=== PATIENT | female | born 1940 | race Caucasian/White ===

== ENCOUNTER 2016-09-07 03:45 | Emergency (ER) | payer OTHER ==
--- NOTE | 2016-09-07 05:22 | ED NURSING NOTES ---
Clinical Report - Nurses [place] [address] [place] [address] 09/07/2016 3:45 Patient: GEMINI LENZ TRIAGE Triage time 0350 AM. Acuity: LEVEL 4. Chief Complaint: INJURY TO LEFT FOOT. INJURY TO THE LEFT GREAT TOE. Alert. No acute distress. NHI COMA SCORE: [place] Coma Scale: 15- eyes open spontaneously (4); best verbal response- oriented x 4 (5); best motor response- obeys commands (6). --03:53 Bishop Alcantara R.N. 03:58 09/07/16. BP: 162/69. HR: 84. RR: 16. O2 saturation: 98%. Temp: 98 F. Pain level now: 05/02. --04:03 Bishop Alcantara R.N. Weight: 96.1 kg stated. Height/Length: 65 inches Per Patient. BMI: 35.3. --03:51 Bishop Alcantara R.N. Medications Acyclovir Oral 800 mg, as needed. Fluticasone Propionate Nasal, as needed. Lasix 60mg twice a day. Lovastatin Oral. --03:51 Bishop Alcantara R.N. MetFORMIN HCl Oral 1000mg, 2x a day. Nitroglycerin Translingual, as needed. Ropinirole Hydrochloride Oral 2 mg , as needed. Sinemet Oral (Tablet 25-250 mg), up yo 5 times a day as needed. Venlafaxine HCl Oral 150 mg, daily. Warfarin Sodium Oral 3 mg, daily (3mg every day but Monday 5mg). ZyrTEC Allergy Oral 10 mg q day. --03:51 Bishop Alcantara R.N. Allergies Ativan. Dihydrochloride. Mirapex. Morphine liquid. Penicillins. --03:51 Bishop Alcantara R.N. History Arrived by private vehicle. Historian: patient. Accompanied by family. Mechanism of injury: fell down 1 stair while walking and landed on a concrete surface; tripped. 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 PAST MEDICAL HX: Diabetes mellitus. Hypertension. Tetanus status: up-to-date. Immunizations: up-to-date. SOCIAL HX: Never smoker. Occasional alcohol use. History of drug use. (no). FALL RISK ASSESSMENT: Fall risk assessment completed. No fall risk identified. NUTRITIONAL RISK ASSESSMENT: The nutritional risk assessment revealed no deficiencies. FUNCTIONAL ASSESSMENT: Functional assessment: no impairments noted. LEARNING NEEDS ASSESSMENT: The learning needs assessment revealed no barriers. SKIN INTEGRITY ASSESSMENT: Skin integrity risk assessment completed. No skin integrity risk identified. --03:53 Bishop Alcantara R.N. PROBLEMS: Back Pain. Abnormal Test. Fall. Diabetes Mellitus. Sleep Apnea. RLS. Obesity. Hypertension. CAD. Atrial Fibrillation. Hyperlipidemia. --03:51 Bishop Alcantara R.N. TIA - Transient Ischemic Attack [RuleOut]. --03:51 Bishop Alcantara R.N. ADDITIONAL SURGERIES: Appendectomy. Arthroscopy. Hip Surgery. Hysterectomy. Oophorectomy. Salpingectomy. Tonsillectomy. --03:51 Bishop Alcantara R.N. Interventions ID band on patient. --03:53 Bishop Alcantara R.N. PHYSICAL ASSESSMENT To room via stretcher. GENERAL / NEURO / PSYCH: Oriented X 4. Alert. Appears in no acute distress. EXTREMITIES: Left big toe: tenderness and swelling. --03:53 Bishop Alcantara R.N. HEENT: No facial asymmetry noted. Head non-tender. Pupils equal, round and reactive to light. EOM intact. Right ear within normal limits. Left ear within normal limits. Nares within normal limits. Mouth within normal limits upon inspection. Pharynx within normal limits. Voice within normal limits. No swelling of head. No dental injury noted. --03:59 Bishop Alcantara R.N. NURSING PROGRESS NOTES 04:04 09/07/2016 Demerol (Meperidine HCl) IM 50 mg given. Given in the right deltoid. Allergies verified, confirmed 5 rights and sedative warning given to the patient. --04:04 Maricruz, Bishop, R.N. 04:15. Patient transported to radiology and CT by stretcher with tech. --04:17 McQuoid, Abby, ER Tech1. DISPOSITION / DISCHARGE 05:26 09/07/16. BP: 137/59. HR: 83. RR: 16. O2 saturation: 95%. Temp: 98.2 F (oral). Pain level now: 11/30. --05:26 Bishop Alcantara R.N. Condition at departure: improved. The goals identified in the patient's plan of care were met. Reviewed medication(s) side effects, precautions, dosing and course information. Prescription(s) given to the patient. Patient verbalized understanding. Written instructions provided in Welsh. The patient was discharged home and accompanied by spouse. She left the Emergency Department ambulatory and via private vehicle. Spouse driving. --05:27 Bishop Alcantara R.N. Departure time: 0527 AM. --05:27 Bishop Alcantara R.N. Locked/Released at 09/07/2016 5:34 by Bishop Alcantara R.N.
--- NOTE | 2016-09-07 05:22 | ED NURSING NOTES ---
Clinical Report - Nurses [place] [address] [place] [address] 09/07/2016 3:45 Patient: GEMINI LENZ TRIAGE Triage time 0350 AM. Acuity: LEVEL 4. Chief Complaint: INJURY TO LEFT FOOT. INJURY TO THE LEFT GREAT TOE. Alert. No acute distress. NHI COMA SCORE: [place] Coma Scale: 15- eyes open spontaneously (4); best verbal response- oriented x 4 (5); best motor response- obeys commands (6). --03:53 Bishop Alcantara R.N. 03:58 09/07/16. BP: 162/69. HR: 84. RR: 16. O2 saturation: 98%. Temp: 98 F. Pain level now: 05/02. --04:03 Bishop Alcantara R.N. Weight: 96.1 kg stated. Height/Length: 65 inches Per Patient. BMI: 35.3. --03:51 Bishop Alcantara R.N. Medications Acyclovir Oral 800 mg, as needed. Fluticasone Propionate Nasal, as needed. Lasix 60mg twice a day. Lovastatin Oral. --03:51 Bishop Alcantara R.N. MetFORMIN HCl Oral 1000mg, 2x a day. Nitroglycerin Translingual, as needed. Ropinirole Hydrochloride Oral 2 mg , as needed. Sinemet Oral (Tablet 25-250 mg), up yo 5 times a day as needed. Venlafaxine HCl Oral 150 mg, daily. Warfarin Sodium Oral 3 mg, daily (3mg every day but Monday 5mg). ZyrTEC Allergy Oral 10 mg q day. --03:51 Bishop Alcantara R.N. Allergies Ativan. Dihydrochloride. Mirapex. Morphine liquid. Penicillins. --03:51 Bishop Alcantara R.N. History Arrived by private vehicle. Historian: patient. Accompanied by family. Mechanism of injury: fell down 1 stair while walking and landed on a concrete surface; tripped. 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 PAST MEDICAL HX: Diabetes mellitus. Hypertension. Tetanus status: up-to-date. Immunizations: up-to-date. SOCIAL HX: Never smoker. Occasional alcohol use. History of drug use. (no). FALL RISK ASSESSMENT: Fall risk assessment completed. No fall risk identified. NUTRITIONAL RISK ASSESSMENT: The nutritional risk assessment revealed no deficiencies. FUNCTIONAL ASSESSMENT: Functional assessment: no impairments noted. LEARNING NEEDS ASSESSMENT: The learning needs assessment revealed no barriers. SKIN INTEGRITY ASSESSMENT: Skin integrity risk assessment completed. No skin integrity risk identified. --03:53 Bishop Alcantara R.N. PROBLEMS: Back Pain. Abnormal Test. Fall. Diabetes Mellitus. Sleep Apnea. RLS. Obesity. Hypertension. CAD. Atrial Fibrillation. Hyperlipidemia. --03:51 Bishop Alcantara R.N. TIA - Transient Ischemic Attack [RuleOut]. --03:51 Bishop Alcantara R.N. ADDITIONAL SURGERIES: Appendectomy. Arthroscopy. Hip Surgery. Hysterectomy. Oophorectomy. Salpingectomy. Tonsillectomy. --03:51 Bishop Alcantara R.N. Interventions ID band on patient. --03:53 Bishop Alcantara R.N. PHYSICAL ASSESSMENT To room via stretcher. GENERAL / NEURO / PSYCH: Oriented X 4. Alert. Appears in no acute distress. EXTREMITIES: Left big toe: tenderness and swelling. --03:53 Bishop Alcantara R.N. HEENT: No facial asymmetry noted. Head non-tender. Pupils equal, round and reactive to light. EOM intact. Right ear within normal limits. Left ear within normal limits. Nares within normal limits. Mouth within normal limits upon inspection. Pharynx within normal limits. Voice within normal limits. No swelling of head. No dental injury noted. --03:59 Bishop Alcantara R.N. NURSING PROGRESS NOTES 04:04 09/07/2016 Demerol (Meperidine HCl) IM 50 mg given. Given in the right deltoid. Allergies verified, confirmed 5 rights and sedative warning given to the patient. --04:04 Maricruz, Bishop, R.N. 04:15. Patient transported to radiology and CT by stretcher with tech. --04:17 McQuoid, Abby, ER Tech1. DISPOSITION / DISCHARGE 05:26 09/07/16. BP: 137/59. HR: 83. RR: 16. O2 saturation: 95%. Temp: 98.2 F (oral). Pain level now: 11/30. --05:26 Bishop Alcantara R.N. Condition at departure: improved. The goals identified in the patient's plan of care were met. Reviewed medication(s) side effects, precautions, dosing and course information. Prescription(s) given to the patient. Patient verbalized understanding. Written instructions provided in Kinyarwanda. The patient was discharged home and accompanied by spouse. She left the Emergency Department ambulatory and via private vehicle. Spouse driving. --05:27 Bishop Alcantara R.N. Departure time: 0527 AM. --05:27 Bishop Alcantara R.N. Locked/Released at 09/07/2016 5:34 by Bishop Alcantara R.N.
--- NOTE | 2016-09-07 05:22 | ED ORDER SUMMARY ---
..... Patient: GEMINI LENZ OrderSheet [facility] VisitID: [id number] [address] [place] [address] 76y, F Registration Date/Time: 09/07/2016 ORDER SHEET Weight: 96.1 kg (stated) Allergies: Ativan, Dihydrochloride, Mirapex, Morphine liquid, Penicillins GENERAL ORDERS: CT Head wo Cont (On Warfarin) Urgent (04:00 09/07/2016 Michelle Sanchez) (Ack 4:03 AMcQuoid ER Tech1) (4:37 GUnger) Foot 3V Left Urgent (04:00 09/07/2016 Michelle Sanchez) (Ack 4:03 AMcQuoid ER Tech1) (4:37 GUnger) CBC w Diff Urgent (04:27 09/07/2016 Michelle Sanchez) (4:53 EInderjovanzen R.N.) CMP Urgent (04:09/07/2016 Michelle Sanchez) (4:53 EInderbitzen R.N.) PT with INR Urgent (04:27 09/07/2016 Michelle Sanchez) (4:53 EInderjovanzen R.N.) PTT Urgent (04:27 09/07/2016 Michelle Sanchez) (4:53 EInderbitzen R.N.) MEDICATION ORDERS: Demerol IM 50 mg (HIGH ALERT MEDICATION, NOW) (04:01 09/07/2016 Michelle Sanchez) (4:04 Leonela R.N.) IV FLUIDS: ORDER SHEET NOTES: [Electronically signed by Bishop Alcantara R.N. (05:34 09/07/2016)] [Electronically signed by Omar Oneil Dr. (07:57 09/07/2016)] [Electronically locked/signed by Bishop Alcantara R.N. (05:34 09/07/2016)]
--- NOTE | 2016-09-07 05:22 | ED ORDER SUMMARY ---
..... Patient: GEMINI LENZ OrderSheet [facility] VisitID: [id number] [address] [place] [address] 76y, F Registration Date/Time: 09/07/2016 ORDER SHEET Weight: 96.1 kg (stated) Allergies: Ativan, Dihydrochloride, Mirapex, Morphine liquid, Penicillins GENERAL ORDERS: CT Head wo Cont (On Warfarin) Urgent (04:00 09/07/2016 Michelle Sanchez) (Ack 4:03 AMcQuoid ER Tech1) (4:37 GUnger) Foot 3V Left Urgent (04:00 09/07/2016 Michelle Sanchez) (Ack 4:03 AMcQuoid ER Tech1) (4:37 GUnger) CBC w Diff Urgent (04:27 09/07/2016 Michelle Sanchez) (4:53 EInderjovanzen R.N.) CMP Urgent (04:09/07/2016 Michelle Sanchez) (4:53 EInderbitzen R.N.) PT with INR Urgent (04:27 09/07/2016 Michelle Sanchez) (4:53 EInderjovanzen R.N.) PTT Urgent (04:27 09/07/2016 Michelle Sanchez) (4:53 EInderbitzen R.N.) MEDICATION ORDERS: Demerol IM 50 mg (HIGH ALERT MEDICATION, NOW) (04:01 09/07/2016 Michelle Sanchez) (4:04 Leonela R.N.) IV FLUIDS: ORDER SHEET NOTES: [Electronically signed by Bishop Alcantara R.N. (05:34 09/07/2016)] [Electronically signed by Omar Oneil Dr. (07:57 09/07/2016)] [Electronically locked/signed by Bishop Alcantara R.N. (05:34 09/07/2016)]
--- NOTE | 2016-09-07 05:22 | ED CLINICAL REPORT ---
Clinical Report - Physicians/Mid Levels [facility] [address] [place] [address] 09/07/2016 3:45 Patient: GEMINI LENZ Time Seen: 03:53; initial patient contact. Arrived- By ambulance. Historian- patient. HISTORY OF PRESENT ILLNESS Chief Complaint: FALL. Location of injuries- head and left foot and left great toe. The injury occurred just prior to arrival. Occurred at home. Fell down 1 stair while walking and landed on the ground; tripped. The patient complains of moderate pain. The patient sustained a moderate blow to the head and was dazed. No neck pain, loss of consciousness or seizure. REVIEW OF SYSTEMS No numbness, dizziness, loss of vision, weakness or nausea. No laceration, vomiting or urinary problems. All systems otherwise negative, except as recorded above. PAST HISTORY Back Pain. Abnormal Test. Fall. Diabetes Mellitus. Sleep Apnea. RLS. Obesity. Hypertension. CAD. Atrial Fibrillation. Hyperlipidemia. TIA - Transient Ischemic Attack ADDITIONAL SURGERIES: Appendectomy. Arthroscopy. Hip Surgery. Hysterectomy. Oophorectomy. Salpingectomy. Tonsillectomy. SOCIAL HISTORY Never smoker. No alcohol use or drug use. ADDITIONAL NOTES The nursing notes have been reviewed with agreement regarding the chief complaint, PMH and patient medications and allergies. PHYSICAL EXAM Vital Signs: 09/07/2016 03:58 BP: 162/69. HR: 84. RR: 16. O2 saturation: 98%. Temp: 98 F. Pain level now: 10/10. Have been reviewed. Hypertensive. Heart rate normal. Respiratory rate normal. Temperature normal. Oxygen saturation normal. Appearance: Alert. Oriented X3. No acute distress. Head: No swelling of head. Vertex: mild tenderness and swelling. No laceration, abrasion or ecchymosis. Eyes: Pupils equal, round and reactive to light. EOM intact. ENT: No dental injury. Pharynx normal. Neck: Painless ROM. Non-tender. CVS: Heart sounds normal. Rate normal. Rhythm normal. Respiratory: No respiratory distress. Breath sounds normal. Skin: Skin intact. Skin warm and dry. Extremities: Left great toe: mild erythema and swelling and moderate tenderness; limited movement secondary to pain (diminished flexion and extension). No ecchymosis or deformity. Neuro: Oriented X 3. No motor deficit. LABS, X-RAYS, AND EKG Lt Foot X-ray: No fracture. Normal alignment. No bony lesion, air in the soft tissue or foreign body. Soft tissues normal. Joint spaces normal. Views: 3 view foot series. Technique: good. The X-rays were independently viewed by me and interpreted contemporaneously by me. Prior films were not available for comparison. Interpretation time: 05:14. CT Head: No acute changes. (Small old lacunar infarct v/snl variant prominent perivascular space inferior R frontal lobe.). Head CT performed without contrast. Prior studies were not available for comparison. The study was interpreted by the radiologist and discussed with the radiologist. Interpretation time: 5. Laboratory Tests: CBC w Diff: (NENA: 09/07/2016 04:50) ( [facility] 09/07/2016 05:03) Final results Test Result Flag Units (Reference) WHITE BLOOD COUNT 11.0 K/uL (4.5-11.5) RED BLOOD COUNT 3.97 L M/uL (4.00-5.20) HEMOGLOBIN 11.6 L gm/dL (12.0-16.0) HEMATOCRIT 36.0 % (36.0-46.0) MEAN CELL VOLUME 91 fL (80-100) MEAN CORPUSCULAR HGB 29 pg (26-34) MEAN CORPUSCULAR HGB CONC 32 g/dL (31-37) RED CELL DISTRIBUTION WIDTH 14.9 H % (11.6-14.8) PLATELET COUNT 323 K/uL (150-400) NEUTROPHIL % 72.3 % (50-75) LYMPH % 16.4 L % (25-40) MONO % 8.6 % (3-14) EOSINOPHIL % 2.5 % (0-4) BASOPHIL % 0.2 % (0-2) PT with INR: (NENA: 09/07/2016 04:50) ( [facility] 09/07/2016 05:14) Final results Test Result Flag Units (Reference) INR 2.1 H (0.8-1.2) Low Intensity Therapy: INR 1.5-2.0 PT range 18.5-23.1Mod.Intensity Therapy: INR 2.0-3.0 PT range 23.1-31.5High Intensity Therapy: INR 2.5-3.5 PT range 27.4-35.5High Intensity Therapy 2: INR 3.0-4.0 PT range 31.5-39.3 APTT 46 H SECONDS (24-34) CMP: (NENA: 09/07/2016 04:50) ( MsgRcvd 09/07/2016 05:19) Final results Test Result Flag Units (Reference) GLUCOSE 156 H mg/dL (70-110) BUN 32 H mg/dL (7-18) CREATININE 1.4 H mg/dL (0.6-1.3) Estimated GFR 38.86 mL/min Estimated GFR- 47.10 mL/min Note: Persistent reduction over 3 months in eGFR<60 mL/min/1.73 m2 defines CKD. Patients with eGFR values>=60 mL/min/1.73 m2 may also have CKD if evidence ofpersistent proteinuria. Additional information may be foundat www.kidney.org. SODIUM 142 mmol/L (136-145) POTASSIUM 3.5 mmol/L (3.5-5.1) CHLORIDE 104 mmol/L (98-107) CARBON DIOXIDE 28 mmol/L (21-32) CALCIUM 9.2 mg/dL (8.5-10.1) TOTAL PROTEIN 6.7 g/dL (6.4-8.2) ALBUMIN 3.3 g/dL (3.3-5.0) BILIRUBIN, TOTAL 0.3 mg/dL (0.0-1.0) ALKALINE PHOSPHATASE 97 U/L (46-116) AST (SGOT) 17 U/L (15-37) ALT (SGPT) 14 U/L (12-78) . PROGRESS AND PROCEDURES Disposition: Discharged home in good and improved condition. Condition: good. CLINICAL IMPRESSION Fall on same level by tripping. Multiple contusions to the head and left great toe.No left toenail injury. INSTRUCTIONS Apply ice for 20 minutes four times a day. Don't apply ice directly to skin. Your Current Medications: CONTINUE TAKING THE FOLLOWING MEDICATIONS: Acyclovir Oral : 800 mg, prn. Fluticasone Propionate Nasal : prn. Lasix* : 60mg twice a day. Lovastatin Oral. MetFORMIN HCl Oral : 1000mg 2x a day. Nitroglycerin Translingual : prn. Ropinirole Hydrochloride Oral : 2 mg, prn. Sinemet Oral : Tablet 25-250 mg, up yo 5 times a day, prn. Venlafaxine HCl Oral : 150 mg daily. Warfarin Sodium Oral : 3 mg daily, 3mg every day but Monday 5mg. ZyrTEC Allergy Oral : 10 mg q day. Prescription Medications: Tramadol 50 mg: take 1 orally every 6 hours as needed for pain and stiffness. Do not take more than 8 tablets in a 24 hour period. Dispense twenty (20). No refills. Follow-up: Follow up with your doctor in about two days. Call for an appointment. Blood pressure screening was not performed during this visit because the patient has an active diagnosis of hypertension. The patient should follow up with a primary care provider for blood pressure management. (Electronically signed by Omar Oneil Dr. 09/07/2016 7:57)
--- NOTE | 2016-09-07 05:57 | DIAGNOSTIC IMAGING REPORT ---
PROCEDURE: XR FOOT 3 VIEWS - LEFT INDICATION: TRAUMA/INJURY TECHNIQUE: Three views. COMPARISON: None. FINDINGS: No fracture or dislocation. Mild first MTP joint degenerative changes. Extensive calcific atherosclerosis. IMPRESSION: 1. No acute changes 2. Mild first MTP joint degenerative changes
--- NOTE | 2016-09-07 07:18 | DIAGNOSTIC IMAGING REPORT ---
PROCEDURE: CT HEAD WITHOUT CONTRAST INDICATION: TRAUMA/INJURY TECHNIQUE: Noncontrast axial images with sagittal and coronal reformations. COMPARISON: None. FINDINGS: Sulci and ventricular system are normal. Stable 3 mm low-density lesion in the inferior right frontal lobe. No evidence of acute intracranial process. Visualized mastoids and sinuses are clear. IMPRESSION: 1. No acute intracranial abnormality 2. Stable 3 mm inferior right frontal lobe lacunar infarct versus prominent perivascular space 3. Preliminary results by Dr. Culp, [facility] radiology
--- NOTE | 2016-09-07 07:58 | ED MED RECONCILIATION SUMMARY ---
Patient: GEMINI LENZ Medication Reconciliation Report [facility] VisitID: [id number] [address] [place] [address] 76y, F Registration Date/Time: 09/07/2016 Weight: 96.1 kg Height/Length: 65 in. BMI: 35.3 ALLERGIES: Ativan, Dihydrochloride, Mirapex, Morphine liquid, Penicillins The patient's Home Medications are listed below: CONTINUE TAKING THE FOLLOWING MEDICATIONS: Acyclovir Oral 800 mg Fluticasone Propionate Nasal Lasix 60mg twice a day Lovastatin Oral MetFORMIN HCl Oral 1000mg, 2x a day Nitroglycerin Translingual Ropinirole Hydrochloride Oral 2 mg Sinemet Oral (25-250 mg), up yo 5 times a day Venlafaxine HCl Oral 150 mg, daily Warfarin Sodium Oral 3 mg, daily, 3mg every day but Monday 5mg ZyrTEC Allergy Oral 10 mg q day The source(s) of the original Home Medication information: Not obtained. The following Medications were given to the patient in the Emergency Department: Demerol [IM] IM 50 mg, administered: 09/07/2016 4:04:00 AM The following Medications were prescribed to the patient: Tramadol 50 mg: take 1 orally every 6 hours as needed for pain and stiffness. Do not take more than 8 tablets in a 24 hour period. Dispense twenty (20). No refills. -- Omar Oneil Dr.
--- NOTE | 2016-09-07 07:58 | ED DISCHARGE INSTRUCTIONS ---
Patient: GEMINI LENZ General Instructions [facility] VisitID: [id number] [address] [place] [address] 76y, F Registration Date/Time: 09/07/2016 Fall on same level by tripping. Multiple contusions to the head and left great toe.No left toenail injury. INSTRUCTIONS Apply ice for 20 minutes four times a day. Don't apply ice directly to skin. Your Current Medications: CONTINUE TAKING THE FOLLOWING MEDICATIONS: Acyclovir Oral : 800 mg, prn. Fluticasone Propionate Nasal : prn. Lasix* : 60mg twice a day. Lovastatin Oral. MetFORMIN HCl Oral : 1000mg 2x a day. Nitroglycerin Translingual : prn. Ropinirole Hydrochloride Oral : 2 mg, prn. Sinemet Oral : Tablet 25-250 mg, up yo 5 times a day, prn. Venlafaxine HCl Oral : 150 mg daily. Warfarin Sodium Oral : 3 mg daily, 3mg every day but Monday 5mg. ZyrTEC Allergy Oral : 10 mg q day. Prescription Medications: Tramadol 50 mg: take 1 orally every 6 hours as needed for pain and stiffness. Do not take more than 8 tablets in a 24 hour period. Dispense twenty (20). No refills. Follow-up: Follow up with your doctor in about two days. Call for an appointment. Blood pressure screening was not performed during this visit because the patient has an active diagnosis of hypertension. The patient should follow up with a primary care provider for blood pressure management. ADDITIONAL INFORMATION Mechanical Fall You have had a fall today. It appears that the cause is mechanical. That means that you slipped, tripped or lost your balance. If your fall had been due to fainting or a seizure, further tests would be required. Home Care: Rest today and resume your normal activities when you are feeling back to normal. If you were injured during the fall, follow the advice from your doctor regarding care of your injury. You may use acetaminophen (Tylenol) or ibuprofen (Motrin, Advil) to control pain, unless another pain medicine was prescribed. [NOTE: If you have chronic liver or kidney disease or ever had a stomach ulcer or GI bleeding, talk with your doctor before using these medicines.] Fall Prevention: Was there anything that caused your fall that can be fixed, removed, or replaced? Make your home safe by keeping walkways clear of objects you may trip over. Use non-slip pads under rugs. Do not walk in poorly lit areas. Do not stand on chairs or wobbly ladders. Use caution when reaching overhead or looking upward. This position can cause a loss of balance. Be sure your shoes fit properly, have non-slip bottoms and are in good condition. Be cautious when going up and down curbs, and walking on uneven sidewalks. If your balance is poor, consider using a cane or walker. Stay as active as you can. Balance, flexibility, strength, and endurance all come from exercise. They all play a role in preventing falls. Follow Up with your doctor or as advised by our staff. Get Prompt Medical Attention if any of the following occur: Repeated mechanical falls, or unexplained falls Dizziness, fainting or seizure Severe headache Chest pain or shortness of breath Palpitations (very rapid or very slow or irregular heartbeat) Blood in vomit, stools (black or red color) Weakness of an arm or leg or one side of the face Difficulty with speech or vision Contusion,Soft Tissue You have a CONTUSION, which is a bruise with swelling and some bleeding under the skin. There are no broken bones. This injury takes a few days to a few weeks to heal. Home Care: 1) Keep the injured part elevated to reduce pain and swelling. This is especially important during the first 48 hours. 2) Make an ice pack (ice cubes in a plastic bag, wrapped in a towel) and apply for 20 minutes every 1-2 hours the first day. Continue this 3-4 times a day until the pain and swelling goes away. 3) You may use acetaminophen (Tylenol) or ibuprofen (Motrin, Advil) to control pain, unless another pain medicine was prescribed. [ NOTE : If you have chronic liver or kidney disease or ever had a stomach ulcer or GI bleeding, talk with your doctor before using these medicines.] Follow Up with your doctor or this facility if you are not improving within the next THREE days. [NOTE: If X-rays were taken, they will be reviewed by a radiologist. You will be notified of any new findings that may affect your care.] Get Prompt Medical Attention if any of the following occur: -- Pain or swelling increases -- Injured arm or leg becomes cold, blue, numb or tingly -- Redness, warmth or drainage from the skin Tramadol Hydrochloride Oral tablet What is this medicine? TRAMADOL (TRA ma dole) is a pain reliever. It is used to treat moderate to severe pain in adults. How should I use this medicine? Take this medicine by mouth with a full glass of water. Follow the directions on the prescription label. If the medicine upsets your stomach, take it with food or milk. Do not take more medicine than you are told to take. Talk to your nuclear equipment research engineer regarding the use of this medicine in children. Special care may be needed. What side effects may I notice from receiving this medicine? Side effects that you should report to your doctor or health nurse care manager as soon as possible: allergic reactions like skin rash, itching or hives, swelling of the face, lips, or tongue breathing difficulties, wheezing confusion itching light headedness or fainting spells redness, blistering, peeling or loosening of the skin, including inside the mouth seizures Side effects that usually do not require medical attention (report to your doctor or health nurse care manager if they continue or are bothersome): constipation dizziness drowsiness headache nausea, vomiting What may interact with this medicine? Do not take this medicine with any of the following medications: MAOIs like Carbex, Eldepryl, Marplan, Nardil, and Parnate This medicine may also interact with the following medications: alcohol or medicines that contain alcohol antihistamines benzodiazepines bupropion carbamazepine or oxcarbazepine clozapine cyclobenzaprine digoxin furazolidone linezolid medicines for depression, anxiety, or psychotic disturbances medicines for migraine headache like almotriptan, eletriptan, frovatriptan, naratriptan, rizatriptan, sumatriptan, zolmitriptan medicines for pain like pentazocine, buprenorphine, butorphanol, meperidine, nalbuphine, and propoxyphene medicines for sleep muscle relaxants naltrexone phenobarbital phenothiazines like perphenazine, thioridazine, chlorpromazine, mesoridazine, fluphenazine, prochlorperazine, promazine, and trifluoperazine procarbazine warfarin What if I miss a dose? If you miss a dose, take it as soon as you can. If it is almost time for your next dose, take only that dose. Do not take double or extra doses. Where should I keep my medicine? Keep out of the reach of children. Store at room temperature between 15 and 30 degrees C (59 and 86 degrees F). Keep container tightly closed. Throw away any unused medicine after the expiration date. What should I tell my health care provider before I take this medicine? They need to know if you have any of these conditions: brain tumor depression drug abuse or addiction head injury if you frequently drink alcohol containing drinks kidney disease or trouble passing urine liver disease lung disease, asthma, or breathing problems seizures or epilepsy suicidal thoughts, plans, or attempt; a previous suicide attempt by you or a family member an unusual or allergic reaction to tramadol, codeine, other medicines, foods, dyes, or preservatives or trying to get breast-feeding What should I watch for while using this medicine? Tell your doctor or health nurse care manager if your pain does not go away, if it gets worse, or if you have new or a different type of pain. You may develop tolerance to the medicine. Tolerance means that you will need a higher dose of the medicine for pain relief. Tolerance is normal and is expected if you take this medicine for a long time. Do not suddenly stop taking your medicine because you may develop a severe reaction. Your body becomes used to the medicine. This does NOT mean you are addicted. Addiction is a behavior related to getting and using a drug for a non-medical reason. If you have pain, you have a medical reason to take pain medicine. Your doctor will tell you how much medicine to take. If your doctor wants you to stop the medicine, the dose will be slowly lowered over time to avoid any side effects. You may get drowsy or dizzy. Do not drive, use machinery, or do anything that needs mental alertness until you know how this medicine affects you. Do not stand or sit up quickly, especially if you are an older patient. This reduces the risk of dizzy or fainting spells. Alcohol can increase or decrease the effects of this medicine. Avoid alcoholic drinks. You may have constipation. Try to have a bowel movement at least every 2 to 3 days. If you do not have a bowel movement for 3 days, call your doctor or health nurse care manager. Your mouth may get dry. Chewing sugarless gum or sucking hard candy, and drinking plenty of water may help. Contact your doctor if the problem does not go away or is severe. You have been given the following additional information: Fall, Mechanical Contusion, Soft Tissue Tramadol Hydrochloride Oral tablet (Electronically signed by Omar Oneil Dr. 09/07/2016 7:57)
--- NOTE | 2016-09-07 07:58 | ED MAR SUMMARY ---
..... Medication Administration Record [facility] [address] [place] [address] Patient: GEMINI LENZ Visit ID: [id number] 76y, F Weight: 96.1 kg Height/Length: 65 in BMI: 35.3 ALLERGIES: Ativan, Dihydrochloride, Mirapex, Morphine liquid, Penicillins Given 04:04 09/07/2016 Bishop Alcantara R.N. Medication Administered: DEMEROL [IM] (MEPERIDINE HCL), Dose: 50 mg IM. Medication Ordered: Demerol IM 50 mg (HIGH ALERT MEDICATION, NOW).
--- NOTE | 2016-09-07 07:58 | ED MED RECONCILIATION SUMMARY ---
Patient: GEMINI LENZ Medication Reconciliation Report [facility] VisitID: [id number] [address] [place] [address] 76y, F Registration Date/Time: 09/07/2016 Weight: 96.1 kg Height/Length: 65 in. BMI: 35.3 ALLERGIES: Ativan, Dihydrochloride, Mirapex, Morphine liquid, Penicillins The patient's Home Medications are listed below: CONTINUE TAKING THE FOLLOWING MEDICATIONS: Acyclovir Oral 800 mg Fluticasone Propionate Nasal Lasix 60mg twice a day Lovastatin Oral MetFORMIN HCl Oral 1000mg, 2x a day Nitroglycerin Translingual Ropinirole Hydrochloride Oral 2 mg Sinemet Oral (25-250 mg), up yo 5 times a day Venlafaxine HCl Oral 150 mg, daily Warfarin Sodium Oral 3 mg, daily, 3mg every day but Monday 5mg ZyrTEC Allergy Oral 10 mg q day The source(s) of the original Home Medication information: Not obtained. The following Medications were given to the patient in the Emergency Department: Demerol [IM] IM 50 mg, administered: 09/07/2016 4:04:00 AM The following Medications were prescribed to the patient: Tramadol 50 mg: take 1 orally every 6 hours as needed for pain and stiffness. Do not take more than 8 tablets in a 24 hour period. Dispense twenty (20). No refills. -- Omar Oneil Dr.
--- NOTE | 2016-09-07 07:58 | ED MAR SUMMARY ---
..... Medication Administration Record [facility] [address] [place] [address] Patient: GEMINI LENZ Visit ID: [id number] 76y, F Weight: 96.1 kg Height/Length: 65 in BMI: 35.3 ALLERGIES: Ativan, Dihydrochloride, Mirapex, Morphine liquid, Penicillins Given 04:04 09/07/2016 Bishop Alcantara R.N. Medication Administered: DEMEROL [IM] (MEPERIDINE HCL), Dose: 50 mg IM. Medication Ordered: Demerol IM 50 mg (HIGH ALERT MEDICATION, NOW).
== END 2016-09-07 05:35 | disposition home or self-care (01) ==
LOC: ED SRH 03:45
DX: S00.93XA Contusion of unspecified part of head, initial encounter (principal); S90.112A Contusion of left great toe without damage to nail, initial encounter; W10.8XXA Fall (on) (from) other stairs and steps, initial encounter; Y93.01 Activity, walking, marching and hiking; Y92.009 Unspecified place in unspecified non-institutional (private) residence as the place of occurrence of the external cause; Y99.9 Unspecified external cause status; E11.9 Type 2 diabetes mellitus without complications; I10 Essential (primary) hypertension; Z86.73 Personal history of transient ischemic attack (TIA), and cerebral infarction without residual deficits; I48.91 Unspecified atrial fibrillation

== ENCOUNTER 2016-10-10 21:11 | Inpatient (IN) | payer OTHER ==
[~2016-10-10] VITALS: Ht 165.1 cm; Wt 100.5 kg
--- NOTE | 2016-10-10 22:30 | DIAGNOSTIC IMAGING REPORT ---
PROCEDURE: XR CHEST 1 VIEW INDICATION: SHORTNESS OF BREATH TECHNIQUE: Single view chest. 2200 hours COMPARISON: 04/04/2012 FINDINGS: Mild cardiomegaly, chronic. Mildly indistinct central vessels. Diffusely thickened interstitial markings, thickening of the right minor fissure , and Yair B lines are present. Minor patchy alveolar opacities in the lower lobes bilaterally. Small right pleural effusion. Asymmetric elevation of the right hemidiaphragm and probable small left effusion. Osteoarthritic changes at both glenohumeral joints. IMPRESSION: 1. Mild cardiomegaly and findings of central vascular, interstitial, and early pulmonary edema.
--- NOTE | 2016-10-10 23:54 | ED NURSING NOTES ---
Clinical Report - Nurses [facility] [address] [place] [address] 10/10/2016 21:11 Patient: GEMINI LENZ TRIAGE Triage time 21:18. Acuity: LEVEL 3. Chief Complaint: SHORTNESS OF BREATH. Alert. --21:25 TonyaB, R.N. 21:14 10/10/16. BP: 146/88. HR: 67. RR: 20. O2 saturation: 97% on non-rebreather. O2 started via non-rebreather. Temp: 99.8 F. Pain level now: 09/30. --21:25 TonreedB, R.N. Weight: 90.7 kg. Height/Length: 65 inches. BMI: 33.3. --21:20 TonyaB, R.N. Medications Acyclovir Oral 800 mg, as needed. Fluticasone Propionate Nasal, as needed. Lasix 60mg twice a day. Lovastatin Oral. MetFORMIN HCl Oral 1000mg, 2x a day. --21:19 TonyaB, R.N. Nitroglycerin Translingual, as needed. Ropinirole Hydrochloride Oral 2 mg , as needed. Sinemet Oral (Tablet 25-250 mg), up yo 5 times a day as needed. Venlafaxine HCl Oral 150 mg, daily. Warfarin Sodium Oral 3 mg, daily (3mg every day but Monday 5mg). ZyrTEC Allergy Oral 10 mg q day. --21:19 TonyaB, R.N. Allergies Ativan. Dihydrochloride. Mirapex. Morphine liquid. Penicillins. --21:19 TonreedB, R.N. History Arrived by EMS. Historian: patient. Accompanied by family. This started today. Treatment PROJECT SCIENTIST: None. See EMS report. PAST MEDICAL HX: Diabetes mellitus. Hypertension. Congestive heart failure. Chronic obstructive pulmonary disease. Immunizations: up-to-date. SOCIAL HX: No alcohol use or drug use. No infectious disease exposure. SELF HARM ASSESSMENT: A self harm assessment was performed. The patient answered "no" to the question "Have you recently felt down, depressed, or hopeless?", "Have you noticed less interest or pleasure in doing things?", "Do you have thoughts of harming or killing yourself?", "Are you here because you tried to hurt yourself?", "Have you ever tried to hurt yourself before today?", "Have you recently had thoughts about harming or killing others?" and "Do you have any dangerous items in your possession?". FALL RISK ASSESSMENT: Fall risk assessment completed. No fall risk identified. NUTRITIONAL RISK ASSESSMENT: The nutritional risk assessment revealed no deficiencies. FUNCTIONAL ASSESSMENT: Functional assessment: no impairments noted. LEARNING NEEDS ASSESSMENT: The learning needs assessment revealed no barriers. SKIN INTEGRITY ASSESSMENT: Skin integrity risk assessment completed. No skin integrity risk identified. --21:25 Joana Samson Interventions ID band on patient. To treatment room. --21:25 Joana Samson PHYSICAL ASSESSMENT To room via stretcher. GENERAL / NEURO / PSYCH: Alert. Oriented X 4. Appears in no acute distress. HEENT: Mucous membranes are pink. RESPIRATORY: No respiratory distress. Chest nontender. Crackles present. CVS: Normal sinus rhythm noted. Capillary refill less than 2 seconds. GI / : Abdomen soft and nontender. Bowel sounds within normal limits. SKIN: Skin is warm and dry. Normal skin turgor. --21:26 Joana Samson NURSING PROGRESS NOTES EKG time: (21:45). EKG was performed by a nurse and shown to the ED physician. --21:45 Joana Samson Two patient identifiers checked. Call light placed in reach. Side rails up x 1. Bed placed in lowest position. --21:46 Joana Samson ( states she has had no medication today). --21:47 Joana Samson 21:30 10/10/2016 Site #1 started via IV in the right antecubital space with an 20g angiocath. Blood drawn: rainbow set. Labeled in the presence of the patient and sent to the lab. --21:55 Joana Samson 21:55 10/10/2016 Diltiazem IVP 22.5 mg given over 2 minute(s) via site #1. Allergies verified and confirmed 5 rights. IV patency established. IV site checked: no pain, redness, or swelling. IV flushed thoroughly pre- and post-medication administration. IVP given by RN. --21:55 Joana Samson 22:56 10/10/2016 NITROGLYCERIN PASTE Topical 1 inch. Applied to the left chest. Allergies verified and confirmed 5 rights. --22:56 Joana Samson 22:56 10/10/2016 Lasix IVP 40 mg given over 4 minute(s) via site #1. Allergies verified and confirmed 5 rights. IV patency established. IV site checked: no pain, redness, or swelling. IV flushed thoroughly pre- and post-medication administration. IVP given by RN. --22:56 Joana Samson ( assisted pt up to BSC and back to bed). --23:29 Olimpia Dunaway R.N. 23:58 10/10/2016 Lasix IVP 40 mg given over 4 minute(s) via site #1. Allergies verified and confirmed 5 rights. IV patency established. IV site checked: no pain, redness, or swelling. IV flushed thoroughly pre- and post-medication administration. IVP given by RN. --23:58 Joana Samson 00:14 10/11/2016 Started of Diltiazem Drip IV; at 5 mg/hr over 5 hour(s) via site #1 via IV pump. Allergies verified and confirmed 5 rights. IV patency established. IV site checked: no pain, redness, or swelling. IV flushed thoroughly pre- and post-medication administration. --00:14 Joana Samson 00:57 10/11/2016 Diltiazem Drip IV Continued: upon admission at the rate of 5 mg/hr. 100 mL remaining bag #1. IV patency established. IV site checked: no pain, redness, or swelling. IV flushed thoroughly. --00:57 Joana Samson DISPOSITION / DISCHARGE Admitted. Transported via stretcher by nurse with IV and O2. Report was given to a nurse via a phone call. Report included patient's care, treatment, medications, reviewed medication reconcilliation, and condition (including any recent changes or anticipated changes). All questions were answered. Report was acknowledged and care was transferred. --00:52 Joana Samson 00:52 10/11/16. BP: 136/58. HR: 99. RR: 20. O2 saturation: 98% on non-rebreather. Temp: deferred. Pain level now: 0/10. --00:53 Joana Samson ( 750 ml of urine out). --00:56 Joana Samson Condition at departure: stable. --00:56 Joana Samson Departure time: 00:58. --00:58 Joana Samson Locked/Released at 10/11/2016 0:58 by Joana Samson
--- NOTE | 2016-10-10 23:54 | ED ORDER SUMMARY ---
..... Patient: GEMINI LENZ OrderSheet [facility] VisitID: [id number] [place] [address] 76y, F Registration Date/Time: 10/10/2016 ORDER SHEET Weight: 90.7 kg Allergies: Ativan, Dihydrochloride, Mirapex, Morphine liquid, Penicillins GENERAL ORDERS: Chest 1V Urgent (21:17 10/10/2016 TBowen R.N. verbal order read back to Saritha LOPEZ) (Ack 21:21 ALawrence ER Tech1) (22:02 MCampbell) Lap Maker (Continuous) (Respiratory Distress) (21:18 10/10/2016 TBowen R.N. verbal order read back to Saritha LOPEZ) (Ack 21:21 ALawrence ER Tech1) (21:26 TBowen R.N.) CBC w Diff Urgent (21:18 10/10/2016 TBowen R.N. verbal order read back to Saritha LOPEZ) (Ack 21:21 ALawrence ER Tech1) (Cancelled: Duplicate Order21:21 ALawrence ER Tech1) CMP Urgent (21:18 10/10/2016 TBowen R.N. verbal order read back to Saritha LOPEZ) (Ack 21:21 ALawrence ER Tech1) (Cancelled: Duplicate Order21:21 ALawrence ER Tech1) Cardiac Panel Stat (21:18 10/10/2016 TBowen R.N. verbal order read back to Saritha LOPEZ) (Ack 21:21 ALawrence ER Tech1) (21:47 TBowen R.N.) Oxygen (2 L/min) (NC) (21:18 10/10/2016 TBowen R.N. verbal order read back to Saritha LOPEZ) (Ack 21:21 ALawrence ER Tech1) (21:26 TBowen R.N.) Pulse oximeter (21:18 10/10/2016 TBowen R.N. verbal order read back to Saritha LOPEZ) (Ack 21:21 ALawrence ER Tech1) (21:26 TBowen R.N.) EKG - ER Stat (21:18 10/10/2016 TBowen R.N. verbal order read back to Saritha LOPEZ) (Ack 21:21 ALawrence ER Tech1) (21:47 TBowen R.N.) PT with INR Urgent (21:26 10/10/2016 Saritha LOPEZ) (21:47 TBowen R.N.) US Carotid Doppler Bilat Urgent (21:42 10/10/2016 Saritha LOPEZ) (Ack 22:06 ALawrence ER Tech1) (23:58 TBowen R.N.) BNP Urgent (22:24 10/10/2016 Saritah LOPEZ) (Ack 22:47 DDavis R.N.) (22:47 DDavis R.N.) (22:50 ALawrence ER Tech1) Shoulder 2V or more Right Urgent (23:17 10/10/2016 Sraitha LOPEZ) (Ack 23:21 ALawrence ER Tech1) (0:06 MCampbell) Oxygen (2 L/min) (NC) (23:17 10/10/2016 Saritha LOPEZ) (0:13 TBowen R.N.) MEDICATION ORDERS: NitroGLYCERIN Paste Topical 1 in. (to CW) (22:24 10/10/2016 Saritha LOPEZ) (22:56 TBowen R.N.) IV FLUIDS: Diltiazem IV 0.25 mg/kg (NOW) (21:44 10/10/2016 Saritha LOPEZ) (Ack 21:45 RCollier R.N.) (21:55 TBowen R.N.) Lasix IV 40 mg (NOW) (22:24 10/10/2016 Saritha LOPEZ) (22:56 TBowen R.N.) Lasix IV 40 mg (NOW) (23:22 10/10/2016 Saritha LOPEZ) (23:58 TBowen R.N.) Diltiazem Drip IV : initial bolus 0.25 mg/kg, then 5 mg/hr for X1 (NOW) (23:57 10/10/2016 Saritha LOPEZ) (0:14 TBowen R.N.) ORDER SHEET NOTES: [Electronically signed by Arti Wagoner R.N. (00:58 10/11/2016)] [Electronically signed by Arti Wagoner R.N. (00:58 10/11/2016)] [Electronically signed by Bill Deleon MD (04:06 10/11/2016)] [Electronically locked/signed by Arti Wagoner R.N. (00:58 10/11/2016)]
--- NOTE | 2016-10-10 23:54 | ED ORDER SUMMARY ---
..... Patient: GEMINI LENZ OrderSheet [facility] VisitID: [id number] [place] [address] 76y, F Registration Date/Time: 10/10/2016 ORDER SHEET Weight: 90.7 kg Allergies: Ativan, Dihydrochloride, Mirapex, Morphine liquid, Penicillins GENERAL ORDERS: Chest 1V Urgent (21:17 10/10/2016 TBowen R.N. verbal order read back to Saritha LOPEZ) (Ack 21:21 ALawrence ER Tech1) (22:02 MCampbell) Mess Attendant (Continuous) (Respiratory Distress) (21:18 10/10/2016 TBowen R.N. verbal order read back to Saritha LOPEZ) (Ack 21:21 ALawrence ER Tech1) (21:26 TBowen R.N.) CBC w Diff Urgent (21:18 10/10/2016 TBowen R.N. verbal order read back to Saritha LOPEZ) (Ack 21:21 ALawrence ER Tech1) (Cancelled: Duplicate Order21:21 ALawrence ER Tech1) CMP Urgent (21:18 10/10/2016 TBowen R.N. verbal order read back to Saritha LOPEZ) (Ack 21:21 ALawrence ER Tech1) (Cancelled: Duplicate Order21:21 ALawrence ER Tech1) Cardiac Panel Stat (21:18 10/10/2016 TBowen R.N. verbal order read back to Saritha LOPEZ) (Ack 21:21 ALawrence ER Tech1) (21:47 TBowen R.N.) Oxygen (2 L/min) (NC) (21:18 10/10/2016 TBowen R.N. verbal order read back to Saritha LOPEZ) (Ack 21:21 ALawrence ER Tech1) (21:26 TBowen R.N.) Pulse oximeter (21:18 10/10/2016 TBowen R.N. verbal order read back to Saritha LOPEZ) (Ack 21:21 ALawrence ER Tech1) (21:26 TBowen R.N.) EKG - ER Stat (21:18 10/10/2016 TBowen R.N. verbal order read back to Saritha LOPEZ) (Ack 21:21 ALawrence ER Tech1) (21:47 TBowen R.N.) PT with INR Urgent (21:26 10/10/2016 Saritha LOPEZ) (21:47 TBowen R.N.) US Carotid Doppler Bilat Urgent (21:42 10/10/2016 Saritha LOPEZ) (Ack 22:06 ALawrence ER Tech1) (23:58 TBowen R.N.) BNP Urgent (22:24 10/10/2016 Saritha LOPEZ) (Ack 22:47 DDavis R.N.) (22:47 DDavis R.N.) (22:50 ALawrence ER Tech1) Shoulder 2V or more Right Urgent (23:17 10/10/2016 Saritha LOPEZ) (Ack 23:21 ALawrence ER Tech1) (0:06 MCampbell) Oxygen (2 L/min) (NC) (23:17 10/10/2016 Saritha LOPEZ) (0:13 TBowen R.N.) MEDICATION ORDERS: NitroGLYCERIN Paste Topical 1 in. (to CW) (22:24 10/10/2016 Saritha LOPEZ) (22:56 TBowen R.N.) IV FLUIDS: Diltiazem IV 0.25 mg/kg (NOW) (21:44 10/10/2016 Saritha LOPEZ) (Ack 21:45 RCollier R.N.) (21:55 TBowen R.N.) Lasix IV 40 mg (NOW) (22:24 10/10/2016 Saritha LOPEZ) (22:56 TBowen R.N.) Lasix IV 40 mg (NOW) (23:22 10/10/2016 Saritha LOPEZ) (23:58 TBowen R.N.) Diltiazem Drip IV : initial bolus 0.25 mg/kg, then 5 mg/hr for X1 (NOW) (23:57 10/10/2016 Saritha LOPEZ) (0:14 TBowen R.N.) ORDER SHEET NOTES: [Electronically signed by Arti Wagoner R.N. (00:58 10/11/2016)] [Electronically signed by Arti Wagoner R.N. (00:58 10/11/2016)] [Electronically signed by Bill Deleon MD (04:06 10/11/2016)] [Electronically locked/signed by Arti Wagoner R.N. (00:58 10/11/2016)]
--- NOTE | 2016-10-10 23:54 | ED CLINICAL REPORT ---
Clinical Report - Physicians/Mid Levels [facility] [address] [place] [address] 10/10/2016 21:11 Patient: GEMINI LENZ Time Seen; upon arrival. Arrived- By ambulance. Historian- EMS personnel. HISTORY OF PRESENT ILLNESS Chief Complaint: DYSPNEA. 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 It was abrupt in onset. The dyspnea is described as moderate and is worsened by exertion. No cough, sputum production, fever, sweating episodes or wheezing. No chest pain or discomfort, calf pain or foot swelling. She has had dyspnea on exertion and orthopnea. Similar symptoms previously: Several times. Recent medical care: Not recently seen/assessed. REVIEW OF SYSTEMS No fever, eye irritation, ear pain, sore throat or calf pain. No chest pain, cough, difficulty breathing, abdominal pain or black stools. No bloody stools, diarrhea, nausea, vomiting or back pain. No alteration in mental status, headache, head injury or difficulty with urination. The patient has had moderate joint pain (equivocal history of fall), involving the right shoulder. All systems otherwise negative, except as recorded above. PAST HISTORY [facility] Illness: AF, DM2, CHF. SOCIAL HISTORY The patient lives with spouse. ADDITIONAL NOTES The nursing notes have been reviewed. PHYSICAL EXAM Vital Signs: 10/11/2016 00:52 BP: 136/58. HR: 99. RR: 20. O2 saturation: 98%. Pain level now: 0/10. 10/10/2016 21:14 BP: 146/88. HR: 67. RR: 20. O2 saturation: 97%. Temp: 99.8 F. Pain level now: 3/10. Appearance: Alert. Patient in moderate distress. Eyes: Pupils equal, round and reactive to light. Eyes normal inspection. ENT: Pharynx normal. Neck: No jugular venous distention. CVS: Tachycardia. Abnormal rhythm. Respiratory: No respiratory distress. Mildly decreased air movement bilaterally. Mild rales present in the lower third of both lung handley. No prolonged expiration, splinting, wheezes or stridor. Abdomen: Soft and nontender. Skin: Skin warm. Normal skin color. Extremities: Extremities exhibit normal ROM. No lower extremity edema. Neuro: No alteration in mental status. LABS, X-RAYS, AND EKG EKG: Atrial fibrillation (114 ( up to 135 on the monitor)). Poor R wave progression. Left axis deviation. X-Rays: Right shoulder negative. The X-rays were independently viewed by me. Laboratory Tests: UA-Culture if indicated: (NENA: 10/11/2016 03:00) ( [facility] 10/11/2016 03:48) Final results Test Result Flag Units (Reference) URINE COLOR YELLOW URINE APPEARANCE CLEAR URINE GLUCOSE NEGATIVE (NEGATIVE) URINE BILIRUBIN NEGATIVE (NEGATIVE) URINE KETONE NEGATIVE (NEGATIVE) URINE SPECIFIC GRAVITY 1.010 (1.010-1.030) URINE PH 6.0 (5.0-8.0) URINE PROTEIN NEGATIVE (NEGATIVE) URINE UROBILINOGEN 0.2 EU/dL (0.2-1.0) URINE NITRITE NEGATIVE (NEGATIVE) URINE BLOOD 2+ (NEGATIVE) URINE LEUK ESTERASE POSITIVE (NEGATIVE) URINE RBC 3-5 rbc/hpf (0-1) URINE WBC 3-5 wbc/hpf (0-1) URINE EPITHELIAL CELLS 0-1 EPI/hpf (0-5) URINE BACTERIA FEW (1+) (NONE SEEN) URINE COMMENT CULTURE INDICATED URINE CULTURES ARE SET-UP BASED ON THE FOLLOWING CRITERIA:POSITIVE NITRITEPOSITIVE LEUKOCYTE ESTERASEGREATER THAN 10 WHITE BLOOD CELLSMODERATE (2+) OR GREATER BACTERIA CBC w Diff: (NENA: 10/10/2016 21:36) ( [facility] 10/10/2016 21:59) Final results Test Result Flag Units (Reference) WHITE BLOOD COUNT 15.1 H K/uL (4.5-11.5) RED BLOOD COUNT 4.05 M/uL (4.00-5.20) HEMOGLOBIN 11.7 L gm/dL (12.0-16.0) HEMATOCRIT 35.8 L % (36.0-46.0) MEAN CELL VOLUME 89 fL (80-100) MEAN CORPUSCULAR HGB 29 pg (26-34) MEAN CORPUSCULAR HGB CONC 33 g/dL (31-37) RED CELL DISTRIBUTION WIDTH 15.1 H % (11.6-14.8) PLATELET COUNT 295 K/uL (150-400) NEUTROPHIL % 82.8 H % (50-75) LYMPH % 7.6 L % (25-40) MONO % 9.2 % (3-14) EOSINOPHIL % 0.3 % (0-4) BASOPHIL % 0.1 % (0-2) PT with INR: (NENA: 10/10/2016 21:36) ( [facility] 10/10/2016 22:05) Final results Test Result Flag Units (Reference) INR 1.8 H (0.8-1.2) Low Intensity Therapy: INR 1.5-2.0 PT range 18.5-23.1Mod.Intensity Therapy: INR 2.0-3.0 PT range 23.1-31.5High Intensity Therapy: INR 2.5-3.5 PT range 27.4-35.5High Intensity Therapy 2: INR 3.0-4.0 PT range 31.5-39.3 BNP: (NENA: 10/10/2016 21:36) ( [facility] 10/10/2016 22:49) Final results Test Result Flag Units (Reference) B-TYPE NATRIURETIC PEPTIDE 940 H pg/ml (5-100) CHEM 13 PANEL: (NENA: 10/10/2016 21:36) ( [facility] 10/10/2016 23:44) Final results Test Result Flag Units (Reference) GLUCOSE 151 H mg/dL (70-110) BUN 17 mg/dL (7-18) CREATININE 0.7 mg/dL (0.6-1.3) Estimated GFR >60 mL/min Estimated GFR- >60 mL/min Note: Persistent reduction over 3 months in eGFR<60 mL/min/1.73 m2 defines CKD. Patients with eGFR values>=60 mL/min/1.73 m2 may also have CKD if evidence ofpersistent proteinuria. Additional information may be foundat www.kidney.org. SODIUM 141 mmol/L (136-145) POTASSIUM 4.1 mmol/L (3.5-5.1) CHLORIDE 105 mmol/L (98-107) CARBON DIOXIDE 26 mmol/L (21-32) CALCIUM 10.1 mg/dL (8.5-10.1) TOTAL PROTEIN 7.4 g/dL (6.4-8.2) ALBUMIN 3.5 g/dL (3.3-5.0) BILIRUBIN, TOTAL 1.1 H mg/dL (0.0-1.0) ALKALINE PHOSPHATASE 95 U/L (46-116) AST (SGOT) 19 U/L (15-37) ALT (SGPT) 10 L U/L (12-78) CPK 54 U/L (24-260) MAGNESIUM 1.9 mg/dL (1.8-2.4) TROPONIN I <0.05 ng/mL (0.00-1.5) TROPONIN REFERENCE RANGE:<0.1 NEGATIVE0.1-1.5 INDETERMINANT>1.5 POSITIVE . PROGRESS AND PROCEDURES Course of Care: 21:35 10/10/16. R arm pain Rapid AF CHF 21:35 10/10/16. She appears to be in AF. Likely due to rapid AF, although not very rapid. Rate control will likely control CHF 21:45 10/10/16. Ordered diltiazem 0.25 mg/kg Bed [address] Sofia. Admit OK if Troponin is negative. HR increased to 120s again. In addition to NTG paste and Lasix 40+40 = 80 mg pt is given an additional 22 mg diltiazem bolus and a 5 mg per hour drip. [employer] orders were completed and Dr Sofia was informed of the return of rapid HR. Critical care performed (50 minutes). Time includes: direct patient care, patient reassessment, coordination of patient care, interpretation of data (laboratory data, chest xrays and prior electrocardiograms), review of patient's medical records, medical consultation, family consultation regarding treatment decisions and documentation of patient care- see progress notes. Disposition: Admitted. CLINICAL IMPRESSION CHF AF WITH RVR R SHOULDER PAIN. (Electronically signed by Bill Deleon MD 10/11/2016 4:06)
--- NOTE | 2016-10-10 23:54 | ED CLINICAL REPORT ---
Clinical Report - Physicians/Mid Levels [facility] [address] [place] [address] 10/10/2016 21:11 Patient: GEMINI LENZ Time Seen; upon arrival. Arrived- By ambulance. Historian- EMS personnel. HISTORY OF PRESENT ILLNESS Chief Complaint: DYSPNEA. This started This morning; Medics report low 02 sats on 2L CARDIAC SURGEON and is still present. It was abrupt in onset. The dyspnea is described as moderate and is worsened by exertion. No cough, sputum production, fever, sweating episodes or wheezing. No chest pain or discomfort, calf pain or foot swelling. She has had dyspnea on exertion and orthopnea. Similar symptoms previously: Several times. Recent medical care: Not recently seen/assessed. REVIEW OF SYSTEMS No fever, eye irritation, ear pain, sore throat or calf pain. No chest pain, cough, difficulty breathing, abdominal pain or black stools. No bloody stools, diarrhea, nausea, vomiting or back pain. No alteration in mental status, headache, head injury or difficulty with urination. The patient has had moderate joint pain (equivocal history of fall), involving the right shoulder. All systems otherwise negative, except as recorded above. PAST HISTORY [facility] Illness: AF, DM2, CHF. SOCIAL HISTORY The patient lives with spouse. ADDITIONAL NOTES The nursing notes have been reviewed. PHYSICAL EXAM Vital Signs: 10/11/2016 00:52 BP: 136/58. HR: 99. RR: 20. O2 saturation: 98%. Pain level now: 0/10. 10/10/2016 21:14 BP: 146/88. HR: 67. RR: 20. O2 saturation: 97%. Temp: 99.8 F. Pain level now: 3/10. Appearance: Alert. Patient in moderate distress. Eyes: Pupils equal, round and reactive to light. Eyes normal inspection. ENT: Pharynx normal. Neck: No jugular venous distention. CVS: Tachycardia. Abnormal rhythm. Respiratory: No respiratory distress. Mildly decreased air movement bilaterally. Mild rales present in the lower third of both lung handley. No prolonged expiration, splinting, wheezes or stridor. Abdomen: Soft and nontender. Skin: Skin warm. Normal skin color. Extremities: Extremities exhibit normal ROM. No lower extremity edema. Neuro: No alteration in mental status. LABS, X-RAYS, AND EKG EKG: Atrial fibrillation (114 ( up to 135 on the monitor)). Poor R wave progression. Left axis deviation. X-Rays: Right shoulder negative. The X-rays were independently viewed by me. Laboratory Tests: UA-Culture if indicated: (NENA: 10/11/2016 03:00) ( [facility] 10/11/2016 03:48) Final results Test Result Flag Units (Reference) URINE COLOR YELLOW URINE APPEARANCE CLEAR URINE GLUCOSE NEGATIVE (NEGATIVE) URINE BILIRUBIN NEGATIVE (NEGATIVE) URINE KETONE NEGATIVE (NEGATIVE) URINE SPECIFIC GRAVITY 1.010 (1.010-1.030) URINE PH 6.0 (5.0-8.0) URINE PROTEIN NEGATIVE (NEGATIVE) URINE UROBILINOGEN 0.2 EU/dL (0.2-1.0) URINE NITRITE NEGATIVE (NEGATIVE) URINE BLOOD 2+ (NEGATIVE) URINE LEUK ESTERASE POSITIVE (NEGATIVE) URINE RBC 3-5 rbc/hpf (0-1) URINE WBC 3-5 wbc/hpf (0-1) URINE EPITHELIAL CELLS 0-1 EPI/hpf (0-5) URINE BACTERIA FEW (1+) (NONE SEEN) URINE COMMENT CULTURE INDICATED URINE CULTURES ARE SET-UP BASED ON THE FOLLOWING CRITERIA:POSITIVE NITRITEPOSITIVE LEUKOCYTE ESTERASEGREATER THAN 10 WHITE BLOOD CELLSMODERATE (2+) OR GREATER BACTERIA CBC w Diff: (NENA: 10/10/2016 21:36) ( [facility] 10/10/2016 21:59) Final results Test Result Flag Units (Reference) WHITE BLOOD COUNT 15.1 H K/uL (4.5-11.5) RED BLOOD COUNT 4.05 M/uL (4.00-5.20) HEMOGLOBIN 11.7 L gm/dL (12.0-16.0) HEMATOCRIT 35.8 L % (36.0-46.0) MEAN CELL VOLUME 89 fL (80-100) MEAN CORPUSCULAR HGB 29 pg (26-34) MEAN CORPUSCULAR HGB CONC 33 g/dL (31-37) RED CELL DISTRIBUTION WIDTH 15.1 H % (11.6-14.8) PLATELET COUNT 295 K/uL (150-400) NEUTROPHIL % 82.8 H % (50-75) LYMPH % 7.6 L % (25-40) MONO % 9.2 % (3-14) EOSINOPHIL % 0.3 % (0-4) BASOPHIL % 0.1 % (0-2) PT with INR: (NENA: 10/10/2016 21:36) ( [facility] 10/10/2016 22:05) Final results Test Result Flag Units (Reference) INR 1.8 H (0.8-1.2) Low Intensity Therapy: INR 1.5-2.0 PT range 18.5-23.1Mod.Intensity Therapy: INR 2.0-3.0 PT range 23.1-31.5High Intensity Therapy: INR 2.5-3.5 PT range 27.4-35.5High Intensity Therapy 2: INR 3.0-4.0 PT range 31.5-39.3 BNP: (NENA: 10/10/2016 21:36) ( [facility] 10/10/2016 22:49) Final results Test Result Flag Units (Reference) B-TYPE NATRIURETIC PEPTIDE 940 H pg/ml (5-100) CHEM 13 PANEL: (NENA: 10/10/2016 21:36) ( [facility] 10/10/2016 23:44) Final results Test Result Flag Units (Reference) GLUCOSE 151 H mg/dL (70-110) BUN 17 mg/dL (7-18) CREATININE 0.7 mg/dL (0.6-1.3) Estimated GFR >60 mL/min Estimated GFR- >60 mL/min Note: Persistent reduction over 3 months in eGFR<60 mL/min/1.73 m2 defines CKD. Patients with eGFR values>=60 mL/min/1.73 m2 may also have CKD if evidence ofpersistent proteinuria. Additional information may be foundat www.kidney.org. SODIUM 141 mmol/L (136-145) POTASSIUM 4.1 mmol/L (3.5-5.1) CHLORIDE 105 mmol/L (98-107) CARBON DIOXIDE 26 mmol/L (21-32) CALCIUM 10.1 mg/dL (8.5-10.1) TOTAL PROTEIN 7.4 g/dL (6.4-8.2) ALBUMIN 3.5 g/dL (3.3-5.0) BILIRUBIN, TOTAL 1.1 H mg/dL (0.0-1.0) ALKALINE PHOSPHATASE 95 U/L (46-116) AST (SGOT) 19 U/L (15-37) ALT (SGPT) 10 L U/L (12-78) CPK 54 U/L (24-260) MAGNESIUM 1.9 mg/dL (1.8-2.4) TROPONIN I <0.05 ng/mL (0.00-1.5) TROPONIN REFERENCE RANGE:<0.1 NEGATIVE0.1-1.5 INDETERMINANT>1.5 POSITIVE . PROGRESS AND PROCEDURES Course of Care: 21:35 10/10/16. R arm pain Rapid AF CHF 21:35 10/10/16. She appears to be in AF. Likely due to rapid AF, although not very rapid. Rate control will likely control CHF 21:45 10/10/16. Ordered diltiazem 0.25 mg/kg Bed [address] Sofia. Admit OK if Troponin is negative. HR increased to 120s again. In addition to NTG paste and Lasix 40+40 = 80 mg pt is given an additional 22 mg diltiazem bolus and a 5 mg per hour drip. [employer] orders were completed and Dr Sofia was informed of the return of rapid HR. Critical care performed (50 minutes). Time includes: direct patient care, patient reassessment, coordination of patient care, interpretation of data (laboratory data, chest xrays and prior electrocardiograms), review of patient's medical records, medical consultation, family consultation regarding treatment decisions and documentation of patient care- see progress notes. Disposition: Admitted. CLINICAL IMPRESSION CHF AF WITH RVR R SHOULDER PAIN. (Electronically signed by Bill Deleon MD 10/11/2016 4:06)
--- NOTE | 2016-10-10 23:59 | Progress Note ---
Subjective General Admission History and Physical Examination Patient Name: Cande Luciano Admission Date: October 10, 2016 Primary Care Provider: Bari Rea M.D. Attending Physician: Heri Sofia M.D. Admitting Physician: Heri Sofia M.D. Code Status: Full Code Room: 302 SUBJECTIVE Historian: Patient Reliability: Fair Chief Complaint: Shortness of breath History of Present Illness: The patient is a 76-year-old white female with a significant past medical history of degenerative joint disease, atrial fibrillation, restless leg syndrome, chronic anticoagulation, iron deficiency anemia, generalized anxiety disorder, coronary artery disease, diabetes mellitus, depression, gastroesophageal reflux, allergic rhinitis who presented to [facility] emergency department on the day of admission secondary to complaints of shortness of breath. [facility] ER evaluation was consistent with exacerbation of CHF, atrial fibrillation with rapid ventricular response. Secondary to the above, the patient was admitted by Heri Sofia M.D. for further evaluation and treatment. PAST MEDICAL HISTORY Illnesses: 1. CHF 2. Atrial fibrillation 3. Coronary artery disease 4. Hypertension 5. Obstructive sleep apnea 6. Type 2 diabetes mellitus 7. Chronic anticoagulation secondary to atrial fibrillation 8. Peripheral neuropathy 9. Hyperlipidemia 10. Restless leg syndrome 11. Gastroesophageal reflux 12. Depression Allergies: 1. Penicillin 2. Morphine 3. Pramipexole 4. Ambien Medications: 1. [Meds] Surgery: 1. Coronary angioplasty with stent placement 2. Hip fracture 3. Hysterectomy Injuries: 1. Hip fracture Hospitalizations: 1. [Hospital] FAMILY HISTORY Parents: 1. Father, Demarco, , 46, accidental injury, 2. Mother, Letty Arango, , 62, lung CA Siblings: 1. Female, living, 78, breast cancer Children: 1. Male, Bill, , 35, cerebral palsy Other significant family history: None SOCIAL HISTORY 1. Marital Status: 2. Worship: [employer] 3. Education: High school 4. Employment History: Unemployed 5. Occupational health exposures: None HABITS 1. Tobacco: Nonsmoker, previous smoker 20 pack years 2. Drugs: None 3. Alcohol: None 4. Caffeine: None HEALTH SUPERVISION Item/Test 1. Vision screen: No recent 2. Cholesterol Profile: 2016 3. PSA: Not applicable 4. NURYS: Not applicable 5. FOBT: Unknown 6. Blood Glucose: 2016 7. Colonoscopy: 2007 8. History and physical exam: Unknown 9. Audiogram: No recent 10. Mammogram: 2017 11. Pap/pelvic exam: Unknown IMMUNIZATIONS: 1. Pneumococcal: 2014 2. Influenza: 2017 3. Tetanus: Unknown ADVANCED DIRECTIVES: 1. Living well: Yes 2. POLST: No 3. Code Status: Full Code 4. Durable Power [employer] Health care: No 5. Donor card: Yes REVIEW OF SYSTEMS Remarkable for those things stated in the history of present illness and past medical history. Seventeen point review of system completed with the following notable findings: [ROS] Physical Exam Vital Signs / I&Os Blood pressure: 144/67 mmHg Pulse: 103 Respirations: 22 Temperature: 99.3 Fahrenheit orally O2 sat: 95% 8 liter oxygen mask General Appearance Oriented X3, Cooperative, No acute distress, slightly lethargic HEENT Atraumatic, PERRLA, EOMI, Moist mucous membranes Lungs Slightly decreased air movement, scattered rhonchi, no significant wheezing. Neck Supple, No JVD, No masses, 2+ carotid pulse wo bruit Cardiovascular No murmurs, gallops, rubs, Irregular rhythm, mild tachycardia Abdomen Normal bowel sounds, Soft, No tenderness, No guarding Extremities No cyanosis, No clubbing, trace pedal edema Neurological Cranial nerves intact, Strength 5/5 x4 ext's, No lateralizing signs Psych/Mental Status Mental status normal, Mood normal LAB Results Laboratory Tests 10/10 10/10 10/10 2136 2136 2118 Chemistry Plasma Sodium (136 - 145 mmol/L) 141 Cancelled Plasma Potassium (3.5 - 5.1 mmol/L) 4.1 Cancelled Plasma Chloride (98 - 107 mmol/L) 105 Cancelled CO2 (Enzymatic) (21 - 32 mmol/L) 26 Cancelled BUN (7 - 18 mg/dL) 17 Cancelled Creatinine (0.6 - 1.3 mg/dL) 0.7 Cancelled Est GFR ( Amer) (mL/min) >60 Cancelled Est GFR (Non-Af Amer) (mL/min) >60 Cancelled Glucose (70 - 110 mg/dL) 151 Cancelled Plasma Calcium (8.5 - 10.1 mg/dL) 10.1 Cancelled Plasma Magnesium (1.8 - 2.4 mg/dL) 1.9 Total Bilirubin (0.0 - 1.0 mg/dL) 1.1 Cancelled AST (15 - 37 U/L) 19 Cancelled ALT (12 - 78 U/L) 10 Cancelled Alkaline Phosphatase (46 - 116 U/L) 95 Cancelled Creatine Kinase (24 - 260 U/L) 54 Troponin (0.00 - 1.5 ng/mL) <0.05 B-Natriuretic Peptide (5 - 100 pg/ml) 940 Total Protein (6.4 - 8.2 g/dL) 7.4 Cancelled Albumin (3.3 - 5.0 g/dL) 3.5 Cancelled Coagulation INR (0.8 - 1.2) 1.8 Hematology WBC (4.5 - 11.5 K/uL) 15.1 RBC (4.00 - 5.20 M/uL) 4.05 Hgb (12.0 - 16.0 gm/dL) 11.7 Hct (36.0 - 46.0 %) 35.8 MCV (80 - 100 fL) 89 MCH (26 - 34 pg) 29 RDW (11.6 - 14.8 %) 15.1 Neut % (Auto) (50 - 75 %) 82.8 Lymph % (Auto) (25 - 40 %) 7.6 [place] % (Auto) (3 - 14 %) 9.2 Eos % (Auto) (0 - 4 %) 0.3 Baso % (Auto) (0 - 2 %) 0.1 Plt Count, EDTA (150 - 400 K/uL) 295 PUBS MCHC (31 - 37 g/dL) 33 Imaging Chest X-Ray IMPRESSION: 1. Mild cardiomegaly and findings of central vascular, interstitial, and early pulmonary edema. Dictated by: ELLY CHICAS MD D: MARYJO;10/10/16 [id number] Assessment and Plan Problem List 1. CHF (congestive heart failure) Status Chronic Onset Date Unknown Plan -Patient presents with findings of CHF in the setting of atrial fibrillation with rapid ventricular response -Lasix, topical nitrates, ARB, Cardizem switching to beta kale for rate control for A. fib -Echocardiogram -Review previous records -Monitor 2. Atrial fibrillation Status Chronic Onset Date Unknown Plan -Patient with history of atrial fibrillation -Patient presents with atrial fibrillation with rapid ventricular response -Patient treated with IV Cardizem in the emergency department -Transition to by mouth beta kale for rate control -Check echocardiogram -Thyroid function testing -Monitor 3. Chronic anticoagulation Status Chronic Onset Date Unknown Plan -Patient with history of chronic anticoagulation -INR slightly low -Increase Coumadin to 4 mg by mouth daily -Daily INR -Monitor 4. Obstructive sleep apnea Status Chronic Onset Date Unknown Plan -Patient with history of obstructive sleep apnea -O2 supplementation -Monitor 5. Obesity Status Chronic Onset Date Unknown Plan -Patient with obesity -Encourage weight reduction program -Nutrition consultation 6. Hyperlipidemia Status Chronic Onset Date Unknown Plan -Patient with history of hyperlipidemia -Check lipid profile -Continue statin therapy, Lipitor 40 mg by mouth daily -Monitor -Low-cholesterol/low-fat diet 7. Cerebrovascular disease Status Chronic Onset Date Unknown Plan -Patient with previous history of cerebrovascular disease status post CVA -No significant ongoing neurological deficits, not problematic at this time -Not problematic this time -Continue Coumadin, aspirin 81 mg by mouth daily -Monitor 8. UTI (urinary tract infection) Status Acute Onset Date Unknown Plan -Urinalysis consistent with UTI -Rocephin 1 g IV daily -Await urine C&S 9. Restless leg syndrome Status Chronic Onset Date Unknown Plan -Patient with history of restless leg syndrome -Continue Sinemet CR -Monitor Current status: Fair, unstable Anticipated discharge date: Anticipated discharge in 2 days Anticipated discharge placement: Home Patient care time: Time spent in chart review, patient interview, physical exam, CPOE, and care documentation: 70 minutes Visit to patient today: 1 Complexity of care: High E&M Codes Admission: Inpt-High/[id number]
[2016-10-11] VITALS (19 sets, daily range): BP systolic 104–155; BP diastolic 35–94
--- NOTE | 2016-10-11 01:28 | NUR ---
PATIENT TO ROOM 302 VIA GURNEY FROM THE ER ON A DILT DRIP AT 5/HOUR AND A NON RE BREATHER, SATS AT 100 PERCENT, WEANED DOWN TO AN OXYMASK AT 8-9 LITERS AND SATURATIONS AT 96 PERCENT. HEART RATE IN THE 100'S BUMPED UP THE DILT DRIP TO 10. BP AT 144/67. PATIENT IS ALERT AND ORIENTED, DENIES ANY PAIN. WILL MONITOR.
[2016-10-11] MEDS ORDERED: ACYCLOVIR200 MG PO (02:48)
[2016-10-11] MEDS ORDERED: CARBIDOPA/LEVOD1 TAB PO (02:49)
[2016-10-11] MEDS ORDERED: DILT-XR120 MG PO (02:50)
[2016-10-11] MEDS ORDERED: FLONASE AL50 MCG/ACT IN (02:52)
[2016-10-11] MEDS ORDERED: NORCO1 TA1 PO (02:55)
[2016-10-11] MEDS ORDERED: COZAAR50 MG PO (02:55)
[2016-10-11] MEDS ORDERED: METFORMIN HCL500 MG PO (02:56)
[2016-10-11] MEDS ORDERED: KLOR-CON 1010 MEQ PO (02:56)
[2016-10-11] MEDS ORDERED: PROTONIX40 MG PO (02:56)
[2016-10-11] MEDS ORDERED: NITROSTAT0.4 MG SL (02:56)
[2016-10-11] MEDS ORDERED: SIMVASTATIN40 MG PO (02:57)
[2016-10-11] MEDS ORDERED: MAXZIDE-25 PO (02:57)
[2016-10-11] MEDS ORDERED: COUMADIN2.5 MG PO (02:58)
[2016-10-11] MEDS ORDERED: COUMADIN2 MG PO (02:58)
[2016-10-11] MEDS ORDERED: EFFEXOR25 MG PO (02:58)
[2016-10-11] MEDS ORDERED: ZYRTEC ALLERGY10 M1 PO (02:59)
[2016-10-11] MEDS ORDERED: LASIX20 MG PO (02:59)
--- NOTE | 2016-10-11 04:06 | ED DISCHARGE INSTRUCTIONS ---
Patient: GEMINI LENZ General Instructions [facility] VisitID: [id number] [address] [place] [address] 76y, F Registration Date/Time: 10/10/2016 CHF AF WITH RVR R SHOULDER PAIN. (Electronically signed by Bill Deleon MD 10/11/2016 4:06)
--- NOTE | 2016-10-11 04:06 | ED DISCHARGE INSTRUCTIONS ---
Patient: GEMINI LENZ General Instructions [facility] VisitID: [id number] [address] [place] [address] 76y, F Registration Date/Time: 10/10/2016 CHF AF WITH RVR R SHOULDER PAIN. (Electronically signed by Bill Deleon MD 10/11/2016 4:06)
--- NOTE | 2016-10-11 04:06 | ED MAR SUMMARY ---
..... Medication Administration Record [facility] [address] [place] [address] Patient: GEMINI LENZ Visit ID: [id number] 76y, F Weight: 90.7 kg Height/Length: 65 in BMI: 33.3 ALLERGIES: Ativan, Dihydrochloride, Mirapex, Morphine liquid, Penicillins Given 21:55 10/10/2016 Joana Samson Medication Administered: DILTIAZEM [IVP], Dose: 22.5 mg IVP over 2 minute(s), Site: #1 right AC. Medication Ordered: Diltiazem IV 0.25 mg/kg (NOW). Given 22:56 10/10/2016 Joana Samson Medication Administered: LASIX [IVP], Dose: 40 mg IVP over 4 minute(s), Site: #1 right AC. Medication Ordered: Lasix IV 40 mg (NOW). Given 22:56 10/10/2016 Joana Samson Medication Administered: NITROGLYCERIN PASTE [TOPICAL], Dose: 1 in. Topical. Medication Ordered: NitroGLYCERIN Paste Topical 1 in. (to CW). Given 23:58 10/10/2016 Joana Samson Medication Administered: LASIX [IVP], Dose: 40 mg IVP over 4 minute(s), Site: #1 right AC. Medication Ordered: Lasix IV 40 mg (NOW). Start 00:14 10/11/2016 Joana Samson, Continued Upon Admission 00:57 10/11/2016 Joana Samson Medication Administered: DILTIAZEM [IV DRIP], Dose: Drip IV over 5 hour(s), Rate: 5 mg/hr, Site: #1 right AC. Medication Ordered: Diltiazem Drip IV : initial bolus 0.25 mg/kg, then 5 mg/hr for X1 (NOW).
--- NOTE | 2016-10-11 04:06 | ED MED RECONCILIATION SUMMARY ---
Patient: GEMINI LENZ Medication Reconciliation Report [facility] VisitID: [id number] [place] [address] 76y, F Registration Date/Time: 10/10/2016 Weight: 90.7 kg Height/Length: 65 in. BMI: 33.3 ALLERGIES: Ativan, Dihydrochloride, Mirapex, Morphine liquid, Penicillins The patient's Home Medications are listed below: THE FOLLOWING MEDICATIONS NEED TO BE RECONCILED: Acyclovir Oral 800 mg Fluticasone Propionate Nasal Lasix 60mg twice a day Lovastatin Oral MetFORMIN HCl Oral 1000mg, 2x a day Nitroglycerin Translingual Ropinirole Hydrochloride Oral 2 mg Sinemet Oral (25-250 mg), up yo 5 times a day Venlafaxine HCl Oral 150 mg, daily Warfarin Sodium Oral 3 mg, daily, 3mg every day but Monday 5mg ZyrTEC Allergy Oral 10 mg q day The source(s) of the original Home Medication information: Not obtained. The following Medications were given to the patient in the Emergency Department: Diltiazem [IVP] IVP 22.5 mg, administered: 10/10/2016 9:55:00 PM NITROGLYCERIN PASTE [TOPICAL] Topical 1 in., administered: 10/10/2016 10:56:00 PM Lasix [IVP] IVP 40 mg, administered: 10/10/2016 10:56:00 PM Lasix [IVP] IVP 40 mg, administered: 10/10/2016 11:58:00 PM Diltiazem [IV Drip] Drip IV bolus 0, then 5 mg/hr, administered: 10/11/2016 12:14:00 AM The following Medications were prescribed to the patient: None.
--- NOTE | 2016-10-11 04:06 | ED MAR SUMMARY ---
..... Medication Administration Record [facility] [address] [place] [address] Patient: GEMINI LENZ Visit ID: [id number] 76y, F Weight: 90.7 kg Height/Length: 65 in BMI: 33.3 ALLERGIES: Ativan, Dihydrochloride, Mirapex, Morphine liquid, Penicillins Given 21:55 10/10/2016 Joana Samson Medication Administered: DILTIAZEM [IVP], Dose: 22.5 mg IVP over 2 minute(s), Site: #1 right AC. Medication Ordered: Diltiazem IV 0.25 mg/kg (NOW). Given 22:56 10/10/2016 Joana Samson Medication Administered: LASIX [IVP], Dose: 40 mg IVP over 4 minute(s), Site: #1 right AC. Medication Ordered: Lasix IV 40 mg (NOW). Given 22:56 10/10/2016 Joana Samson Medication Administered: NITROGLYCERIN PASTE [TOPICAL], Dose: 1 in. Topical. Medication Ordered: NitroGLYCERIN Paste Topical 1 in. (to CW). Given 23:58 10/10/2016 Joana Samson Medication Administered: LASIX [IVP], Dose: 40 mg IVP over 4 minute(s), Site: #1 right AC. Medication Ordered: Lasix IV 40 mg (NOW). Start 00:14 10/11/2016 Joana Samson, Continued Upon Admission 00:57 10/11/2016 Joana Samson Medication Administered: DILTIAZEM [IV DRIP], Dose: Drip IV over 5 hour(s), Rate: 5 mg/hr, Site: #1 right AC. Medication Ordered: Diltiazem Drip IV : initial bolus 0.25 mg/kg, then 5 mg/hr for X1 (NOW).
--- NOTE | 2016-10-11 04:06 | ED MED RECONCILIATION SUMMARY ---
Patient: GEMINI LENZ Medication Reconciliation Report [facility] VisitID: [id number] [place] [address] 76y, F Registration Date/Time: 10/10/2016 Weight: 90.7 kg Height/Length: 65 in. BMI: 33.3 ALLERGIES: Ativan, Dihydrochloride, Mirapex, Morphine liquid, Penicillins The patient's Home Medications are listed below: THE FOLLOWING MEDICATIONS NEED TO BE RECONCILED: Acyclovir Oral 800 mg Fluticasone Propionate Nasal Lasix 60mg twice a day Lovastatin Oral MetFORMIN HCl Oral 1000mg, 2x a day Nitroglycerin Translingual Ropinirole Hydrochloride Oral 2 mg Sinemet Oral (25-250 mg), up yo 5 times a day Venlafaxine HCl Oral 150 mg, daily Warfarin Sodium Oral 3 mg, daily, 3mg every day but Monday 5mg ZyrTEC Allergy Oral 10 mg q day The source(s) of the original Home Medication information: Not obtained. The following Medications were given to the patient in the Emergency Department: Diltiazem [IVP] IVP 22.5 mg, administered: 10/10/2016 9:55:00 PM NITROGLYCERIN PASTE [TOPICAL] Topical 1 in., administered: 10/10/2016 10:56:00 PM Lasix [IVP] IVP 40 mg, administered: 10/10/2016 10:56:00 PM Lasix [IVP] IVP 40 mg, administered: 10/10/2016 11:58:00 PM Diltiazem [IV Drip] Drip IV bolus 0, then 5 mg/hr, administered: 10/11/2016 12:14:00 AM The following Medications were prescribed to the patient: None.
--- NOTE | 2016-10-11 05:00 | NUR ---
PATIENT IS VERY RESTLESS AND MOVING AROUND IN BED ALL OVER THE PLACE, TRIED TO LAY DOWN ON HER STOMACH AMD TANGLING IN CORDS, EXPLAINED WHY SHE SHOULD STAY ON HER BACK AND ROLL SIDE TO SIDE WITH HER CHF AND HER LINES. STILL RESTLESS, WANTED HER SENEMET AND THE VICODIN. PAGED DR PHAM EARLIER, GIVEN HER THE MEDS. DILT DRIP UP TO 15MG/HOUR AND THE HEART RATE AROUND 100. ASKED PATIENT IF SHE IS PAINFUL AND WHY SHE CONSTANTLY MOANS AND GROANS, SHE STATED THATS JUST WHAT SHE DOES AT HOME TOO. DENIES ANY PAIN. BED ALARM IS ON DUE TO NOT USING THE CALL LIGHT AND NOT WANTING TO GET UP ON HER OWN AND NOT WANTING TO BTOERH US.
--- NOTE | 2016-10-11 05:05 | NUR ---
ALSO WHEN ASKED HOW THIS RN CAN HELP THE PATIENT SHE STATED "YOU CANT, CAN YOU CALL THROUGH THE PHONE TO THE ROOM?" WHEN ASKED WHY SHE STATED "TO SAVE STEPS".
--- NOTE | 2016-10-11 08:24 | DIAGNOSTIC IMAGING REPORT ---
PROCEDURE: XR SHOULDER 2 OR MORE VW-RIGHT INDICATION: PAIN TECHNIQUE: Four views of the right shoulder COMPARISON: None. FINDINGS: Normal mineralization. No fractures. Moderate inferior marginal spurring of the humeral head. Decreased glenohumeral joint space. No dislocation or separation. No suspicious soft tissue calcifications. The visible rib arcs and the underlying lung appear normal. IMPRESSION: 1. Intact right shoulder. 2. Osteoarthritic changes.
--- NOTE | 2016-10-11 08:34 | DIAGNOSTIC IMAGING REPORT ---
PROCEDURE: US BILATERAL CAROTID DOPPLER INDICATION: STROKE/CVA TECHNIQUE: Color Doppler duplex imaging of the carotid and vertebral vessels. COMPARISON: 04/04/2012 FINDINGS: Right carotid system: Moderate focal mixed calcified and noncalcified plaque in the carotid bulb extending into the internal carotid artery causing a moderate subjective luminal stenosis. Shadowing calcific plaque in the proximal internal carotid artery. Mild luminal stenosis. Wave forms of the proximal internal carotid artery are mildly high resistance and demonstrate spectral broadening throughout. Left carotid system: Mild calcific irregular polypoid plaque in the proximal internal carotid artery without causing significant luminal stenosis. Vertebral System: Antegrade vertebral artery flow bilaterally. Right common carotid artery peak systolic velocity 91 cm/second. Right internal carotid artery peak systolic velocity 177 cm/second. Right external carotid artery peak systolic velocity 184 cm/second. Right rhcraobz-js-xmfwom carotid artery ratio 1.9 Right vertebral artery peak systolic velocity 80 cm/second. Left common carotid artery peak systolic velocity 54 cm/second. Left internal carotid artery peak systolic velocity 156 cm/second. Left external carotid artery peak systolic velocity 148 cm/second. Left bljshpuf-am-kiuozp carotid artery ratio 2.8 Left vertebral artery peak systolic velocity 64 cm/second. IMPRESSION: 1. Given wave form and velocity criteria, moderate right internal carotid artery stenosis proximally is estimated to be about 70%. This has worsened since the previous study. 2. Mild to moderate left internal carotid artery stenosis estimated to be about 50-69%, also worsened since the previous study. 3. Antegrade vertebral artery flow. Velocity criteria are extrapolated from diameter data as defined by the Society of Radiologists in Ultrasound Consensus Conference, Radiology 2003; 229; 340-346.
--- NOTE | 2016-10-11 08:34 | DIAGNOSTIC IMAGING REPORT ---
PROCEDURE: US BILATERAL CAROTID DOPPLER INDICATION: STROKE/CVA TECHNIQUE: Color Doppler duplex imaging of the carotid and vertebral vessels. COMPARISON: 04/04/2012 FINDINGS: Right carotid system: Moderate focal mixed calcified and noncalcified plaque in the carotid bulb extending into the internal carotid artery causing a moderate subjective luminal stenosis. Shadowing calcific plaque in the proximal internal carotid artery. Mild luminal stenosis. Wave forms of the proximal internal carotid artery are mildly high resistance and demonstrate spectral broadening throughout. Left carotid system: Mild calcific irregular polypoid plaque in the proximal internal carotid artery without causing significant luminal stenosis. Vertebral System: Antegrade vertebral artery flow bilaterally. Right common carotid artery peak systolic velocity 91 cm/second. Right internal carotid artery peak systolic velocity 177 cm/second. Right external carotid artery peak systolic velocity 184 cm/second. Right lxlgajjp-qn-tgybgd carotid artery ratio 1.9 Right vertebral artery peak systolic velocity 80 cm/second. Left common carotid artery peak systolic velocity 54 cm/second. Left internal carotid artery peak systolic velocity 156 cm/second. Left external carotid artery peak systolic velocity 148 cm/second. Left oyvzamfm-zl-hmickk carotid artery ratio 2.8 Left vertebral artery peak systolic velocity 64 cm/second. IMPRESSION: 1. Given wave form and velocity criteria, moderate right internal carotid artery stenosis proximally is estimated to be about 70%. This has worsened since the previous study. 2. Mild to moderate left internal carotid artery stenosis estimated to be about 50-69%, also worsened since the previous study. 3. Antegrade vertebral artery flow. Velocity criteria are extrapolated from diameter data as defined by the Society of Radiologists in Ultrasound Consensus Conference, Radiology 2003; 229; 340-346.
--- NOTE | 2016-10-11 08:56 | NUR ---
PT MOANING AND CRYING IN ROOM. VERY RESTLESS, ROLLING AROUND IN BED, GETTING TANGLED UP IN MONITORING CORDS. PHARMACY PROVIDED CORRECT DOSE OF SINEMET. AFTER TAKING, PT QUICKLY BECAME DROWSY AND FELL ASLEEP. HAD ASKED FOR VICODIN, BUT I WILL HOLD UNTIL SHE IS MORE ALERT. ECHOCARDIOGRAM TEST IN PROGRESS.
--- NOTE | 2016-10-11 12:00 | NUR ---
PT NOW CALM, NO LONGER RESTLESS. REPORTS GOOD RELIEF FROM SINEMET AND VICODIN. STATES, "I CAN GET VERY WORKED UP WHEN I DON'T GET MY MEDICATION." SEVERE RESTLESS LEG SYNDROME, PER PATIENT. TELE SHOWS A-FIB, RATE 70-80'S. DILTIAZEM GTT RUNNING AT 15 MG/HR. WCTM.
[2016-10-11] MEDS ORDERED: SYMBICORT1 AE1 IN (14:39)
[2016-10-11] MEDS ORDERED: ALTOPREV20 MG PO (14:39)
[2016-10-11] MEDS ORDERED: METOPROLOL SUC100 MG PO (14:39)
[2016-10-11] MEDS ORDERED: ONDANSETRON ODT4 MG PO (14:40)
--- NOTE | 2016-10-11 16:59 | NUR ---
METOPROLOL GIVEN PO. TELE IN ATRIAL FIB, RATE 55-69. WEANED OFF DILTIAZEM GTT. REMAINS ON OXYGEN AT 4L NC, SATS 91-93%.
--- NOTE | 2016-10-11 18:02 | Progress Note ---
Subjective General Note Date: October 11, 2016 Admission Date: October 10, 2016 Hospital Day: 2 PCP: Bari Rea M.D. Status: Inpatient Advanced Directive: FULL CODE Room: 302 Brief History: The patient is a 76-year-old white female with a significant past medical history of degenerative joint disease, atrial fibrillation, restless leg syndrome, chronic anticoagulation, iron deficiency anemia, generalized anxiety disorder, coronary artery disease, diabetes mellitus, depression, gastroesophageal reflux, allergic rhinitis who presented to [facility] emergency department on the day of admission secondary to complaints of shortness of breath. [facility] ER evaluation was consistent with exacerbation of CHF, atrial fibrillation with rapid ventricular response. Secondary to the above, the patient was admitted by Heri Sofia M.D. for further evaluation and treatment. For other history present illness, past medical history, family history, social history, review of systems, and admission physical examination please see the patient's history and physical examination and ER visit note in the patient's medical record. Subjective: The patient states she is doing somewhat better today. Decrease shortness of breath. Restless legs improved. No specific complaints other than back pain Patient requests: Improved pain control Medications and Allergies Medications Current Medications Sig/Joe Start time Last Medication Dose Route Stop Time Status Admin Atorvastatin Calcium 40 MG QPM 10/11 1800 AC PO Furosemide 20 MG DIUB 10/11 1800 AC PO Ceftriaxone Sodium/ 50 ML DAILY 10/11 1430 AC 10/11 Dextrose IV 1528 Metoprolol Tartrate 50 MG Q8H 10/11 1430 AC 10/11 PO 1525 Metoprolol Tartrate 5 MG Q3H PRN 10/11 1430 AC IV Warfarin Sodium 4 MG DAILY@1400 10/11 1400 AC 10/11 PO 1331 Venlafaxine HCl 150 MG DAILY 10/11 0900 AC 10/11 PO 0813 Acetaminophen/ See Dose Q4H PRN 10/11 0815 AC 10/11 Hydrocodone Bitart Insts (1) PO 1525 Carbidopa/Levodopa 1 TAB 5XD 10/11 0800 AC 10/11 PO 1331 Insulin Human Lispro See Dose ACHS 10/11 0730 AC 10/11 Insts (2) SC 0811 Nitroglycerin 1 GM Q6HR 10/11 0600 AC 10/11 TOP 1146 Pantoprazole Sodium 40 MG DAILY@0600 10/11 0600 AC 10/11 Sesquihydrate PO 0640 Candesartan Cilexetil 4 MG BID 10/11 0230 AC 10/11 PO 1146 Diltiazem/Dextrose 125 ML ASDIRECTED 10/11 0100 AC 10/11 IV 0951 Acetaminophen 650 MG Q4H PRN 10/11 44 AC PO Al Hydrox/Mg Hydrox/ 15 ML Q1H PRN 10/11 44 AC Simethicone PO Atropine Sulfate 0.5 MG Q3MIN PRN 10/11 44 AC IV Docusate Sodium 250 MG BID PRN 10/11 44 AC PO Lidocaine HCl See Dose ONCE PRN 10/11 44 AC Insts (3) IV Magnesium Hydroxide 10 ML DAILY PRN 10/11 44 AC PO Nitroglycerin 0.4 MG Q5M PRN 10/11 44 AC SL Ondansetron HCl 4 MG Q6H PRN 10/11 44 AC IV Sodium Chloride 1,000 ML ASDIRECTED 10/11 44 AC 10/11 IV 1654 Dose Instructions: (1)Acetaminophen/Hydrocodone Bitart: 1 - 2 TABLETS (2)Insulin Human Lispro: MEDIUM DOSE SLIDING SCALE (3)Lidocaine HCl: 1.5 MG/KG Allergies Coded Allergies: Pramipexole (From Mirapex) (Severe, TIA'S 04/04/12) Penicillins (Intermediate, hives 04/04/12) Blueberries (10/11/16) Lorazepam (From ATIVAN) (10/11/16) Morphine (10/11/16) Zolpidem (10/11/16) Uncoded Allergies: DIHYDROCHLORIDE (10/11/16) Physical Exam Vital Signs / I&Os Vital Signs Date Time Temp Pulse Resp B/P Pulse O2 O2 Flow FiO2 Ox Delivery Rate 10/11 1600 64 20 110/48 92 Nasal 3.0 Cannula 10/11 1456 98.1 79 24 108/48 95 Nasal 3.0 Cannula 10/11 1320 3.0 10/11 1300 99 18 130/66 100 Nasal 3.0 Cannula 10/11 1211 82 20 122/60 92 Nasal 3.0 Cannula 10/11 1100 82 18 124/35 93 Nasal 3.0 Cannula 10/11 1000 98.2 89 24 108/37 93 Nasal 4.0 Cannula 10/11 0900 89 22 112/71 93 Nasal 8.0 Cannula 10/11 0800 Nasal 3.0 Cannula 10/11 0800 101 20 129/51 96 Nasal 8.0 Cannula 10/11 0635 98.2 47 20 138/46 96 Mask 8.0 10/11 0313 129 153/63 94 Mask 8.0 10/11 0213 88 20 155/63 96 Mask 8.0 10/11 0159 Mask 9.0 10/11 0115 99.3 103 22 144/67 95 OXY MASK 8.0 General Appearance Alert, Oriented X3, Cooperative, No acute distress Lungs Normal air movement, basilar crackles. No wheezes noted Cardiovascular Normal S1 and S2, irregular rhythm, mild tachycardia Abdomen Normal bowel sounds, Soft, No tenderness Extremities No cyanosis, No clubbing, trace pedal edema. Neurological Cranial nerves intact, Strength 5/5 x4 ext's, No lateralizing signs Psych/Mental Status Mental status normal, Mood normal LAB Results Laboratory Tests 10/11 10/11 10/11 10/11 1329 1020 0536 0536 Chemistry Troponin (0.00 - 1.5 ng/mL) <0.05 <0.05 TSH 3rd Generation (0.30 - 3.74 uIU/mL) 2.085 Coagulation INR (0.8 - 1.2) 1.7 10/11 10/10 10/10 0300 2136 2136 Chemistry Plasma Sodium (136 - 145 mmol/L) 141 Plasma Potassium (3.5 - 5.1 mmol/L) 4.1 Plasma Chloride (98 - 107 mmol/L) 105 CO2 (Enzymatic) (21 - 32 mmol/L) 26 BUN (7 - 18 mg/dL) 17 Creatinine (0.6 - 1.3 mg/dL) 0.7 Est GFR ( Amer) (mL/min) >60 Est GFR (Non-Af Amer) (mL/min) >60 Glucose (70 - 110 mg/dL) 151 Plasma Calcium (8.5 - 10.1 mg/dL) 10.1 Plasma Magnesium (1.8 - 2.4 mg/dL) 1.9 Total Bilirubin (0.0 - 1.0 mg/dL) 1.1 AST (15 - 37 U/L) 19 ALT (12 - 78 U/L) 10 Alkaline Phosphatase (46 - 116 U/L) 95 Creatine Kinase (24 - 260 U/L) 54 Troponin (0.00 - 1.5 ng/mL) <0.05 B-Natriuretic Peptide (5 - 100 pg/ml) 940 Total Protein (6.4 - 8.2 g/dL) 7.4 Albumin (3.3 - 5.0 g/dL) 3.5 Coagulation INR (0.8 - 1.2) 1.8 Hematology WBC (4.5 - 11.5 K/uL) 15.1 RBC (4.00 - 5.20 M/uL) 4.05 Hgb (12.0 - 16.0 gm/dL) 11.7 Hct (36.0 - 46.0 %) 35.8 MCV (80 - 100 fL) 89 MCH (26 - 34 pg) 29 RDW (11.6 - 14.8 %) 15.1 Neut % (Auto) (50 - 75 %) 82.8 Lymph % (Auto) (25 - 40 %) 7.6 Dauphin % (Auto) (3 - 14 %) 9.2 Eos % (Auto) (0 - 4 %) 0.3 Baso % (Auto) (0 - 2 %) 0.1 Plt Count, EDTA (150 - 400 K/uL) 295 PUBS MCHC (31 - 37 g/dL) 33 Urines Urine Color YELLOW Urine Appearance CLEAR Urine pH (5.0 - 8.0) 6.0 Ur Specific Orchard (1.010 - 1.030) 1.010 Urine Protein (NEGATIVE) NEGATIVE Urine Ketones (NEGATIVE) NEGATIVE Urine Blood (NEGATIVE) 2+ Urine Nitrite (NEGATIVE) NEGATIVE Urine Bilirubin (NEGATIVE) NEGATIVE Urine Urobilinogen (0.2 - 1.0 EU/dL) 0.2 Ur Leukocyte Esterase (NEGATIVE) POSITIVE Urine RBC (0 - 1 rbc/hpf) 3-5 Urine WBC (0 - 1 wbc/hpf) 3-5 Ur Epithelial Cells (0 - 5 EPI/hpf) 0-1 Urine Bacteria (NONE SEEN) FEW (1+) Urine Glucose (NEGATIVE) NEGATIVE Urine Comment CULTURE INDICATED 10/10 2117 Chemistry Plasma Sodium Cancelled Plasma Potassium Cancelled Plasma Chloride Cancelled CO2 (Enzymatic) Cancelled BUN Cancelled Creatinine Cancelled Est GFR ( Amer) Cancelled Est GFR (Non-Af Amer) Cancelled Glucose Cancelled Plasma Calcium Cancelled Total Bilirubin Cancelled AST Cancelled ALT Cancelled Alkaline Phosphatase Cancelled Total Protein Cancelled Albumin Cancelled Microbiology Date/Time Procedure - Status Source Growth 10/11 1045 MRSA Screen - RECD NOSE 10/11 0300 Urine Culture - RECD URINE CC Imaging Carotid Doppler and Ultrasound IMPRESSION: 1. Given wave form and velocity criteria, moderate right internal carotid artery stenosis proximally is estimated to be about 70%. This has worsened since the previous study. 2. Mild to moderate left internal carotid artery stenosis estimated to be about 50-69%, also worsened since the previous study. 3. Antegrade vertebral artery flow. Velocity criteria are extrapolated from diameter data as defined by the Society of Radiologists in Ultrasound Consensus Conference, Radiology 2003; 229; 340-346. Dictated by: ELLY CHICAS MD D: MARYJO;10/11/16 0834 Assessment and Plan Problem List 1. CHF (congestive heart failure) Status Chronic Onset Date Unknown Plan -Status improved. -Decreasing O2 requirements -Decrease shortness of breath -Continue present therapy -Low-salt diet 2. Atrial fibrillation Status Chronic Onset Date Unknown Plan -Rate improved -Continue with Cardizem/beta kale. Wean Cardizem drip converting to oral metoprolol -Check echocardiogram -TSH within normal limits -Continue anticoagulation 3. Chronic anticoagulation Status Chronic Onset Date Unknown Plan -INR slightly low at 1.7 -Continue Coumadin 4 mg by mouth daily -Daily INR 4. Obstructive sleep apnea Status Chronic Onset Date Unknown Plan -Monitor -Outpatient follow-up 5. Obesity Status Chronic Onset Date Unknown Plan -Encourage weight reduction program -Nutritional consult 6. Cerebrovascular disease Status Chronic Onset Date Unknown Plan -Patient with history of cerebral vascular disease -Persistent bilateral carotid artery stenosis -Continue ASA/Coumadin. 7. Restless leg syndrome Status Chronic Onset Date Unknown Plan -Continue Sinemet -Symptoms adequately controlled 8. UTI (urinary tract infection) Status Acute Onset Date Unknown Plan -Patient with findings of UTI on urinalysis -Rocephin 1 g IV daily -Await urine C&S Current status: Fair, unstable Anticipated discharge date: Anticipated discharge in 2 days Anticipated discharge placement: Home Patient care time: Time spent in chart review, patient interview, physical exam, CPOE, and care documentation: 35 minutes Visit to patient today: 2 Complexity of care: Moderate-High E&M Codes Rounding: Inpt-High/[id number]
--- NOTE | 2016-10-11 18:50 | DIAGNOSTIC IMAGING REPORT ---
REFERRING PHYSICIAN/PROVIDER: Heri Sofia MD CONSULTING SUPERVISOR PASTRY: Ihsan Dowell Jr MD INDICATION: chf, afib Procedure: The study quality was technically difficult. A two-dimensional transthoracic echocardiogram with color flow and Doppler was performed. The patient was in atrial fibrillation with controlled ventricular rate during the exam. Left Ventricle: The left ventricle is normal in size. Left ventricular wall thickness is borderline increased. Left ventricular systolic function is normal without focal wall motion abnormalities. The ejection fraction is estimated to be 70-75%. Diastolic function could not be accurately assessed due to atrial fibrillation. Right Ventricle: The right ventricle grossly appears normal in size with probable normal systolic function. Atria: The left atrium is moderately dilated. The right atrium is mildly dilated. The interatrial septum is intact with no evidence for an atrial septal defect. Mitral Valve: There is mild mitral annular calcification. There is trace mitral regurgitation. Aortic Valve: The aortic valve is trileaflet. The aortic valve opens well. There is mild aortic valve sclerosis. There is no hemodynamically significant valvular aortic stenosis. There is no aortic regurgitation. Tricuspid Valve: The tricuspid valve is not well visualized, but is grossly normal. There is trace tricuspid regurgitation. Pulmonary artery pressures cannot be estimated because of the lack of a measurable TR jet velocity. Pulmonic Valve: The pulmonic valve is not well seen, but is grossly normal. There is no pulmonic valvular regurgitation. There is no significant valvular heart disease. Great Vessels: The aortic root is normal size. The dimensions of the ascending aorta are normal. The IVC is of normal diameter and collapses greater than 50% with a sniff. This suggests a low right atrial pressure of 3 mm Hg. Pericardium/ Pleura There is no pericardial effusion. IMPRESSION: The left ventricle is normal in size. Left ventricular systolic function is normal without focal wall motion abnormalities. The ejection fraction is estimated to be 70-75%. Diastolic function could not be accurately assessed due to atrial fibrillation. The right ventricle grossly appears normal in size with probable normal systolic function. Pulmonary artery pressures cannot be estimated because of the lack of a measurable TR jet velocity. The left atrium is moderately dilated. The right atrium is mildly dilated. There is no significant valvular heart disease. The aortic root is normal size.
--- NOTE | 2016-10-11 21:51 | NUR ---
PT RESTING IN BED, WATCHING TV. ALERT AND ORIENTED X3. NO COMPLAINTS OF PAIN. IV UNREMARKABLE TO RFA - INFUSING AT 75/HR. HEART RATE IN THE 80'S - AFIB NOTED PER TELE. NO COMPLAINTS OF CHEST PAIN, NO HEART PALPIATIONS. O2 NC AT 3 LITERS, NO DISTRESS, NO SOB, O2 SATS AT 94%. PT IS MOVING AROUND IN BED ON OWN. LAB IN TO DRAW LABS ORDERED. NO REQUESTS, CALL LIGHT WITHIN REACH.
[2016-10-12] VITALS (15 sets, daily range): BP systolic 90–141; BP diastolic 40–84
--- NOTE | 2016-10-12 06:26 | NUR ---
PT SITTING AT BEDSIDE - PAIN AT A 3/10 TO LOWER BACK - VICODIN PO EFFECTIVE. TELE SHOWS AFIB - HEART RATE AT 84. NO CHEST PAIN, NO HEART PALPITATIONS. 02 SATS AT 94% ON 1.5 LITERS NC. NO REQUESTS AT THIS TIME. CALL LIGHT WITHIN REACH.
--- NOTE | 2016-10-12 07:56 | Progress Note ---
Subjective General Note Date: October 12, 2016 Admission Date: October 10, 2016 Hospital Day: 3 PCP: Bari Rea M.D. Status: Inpatient Advanced Directive: FULL CODE Room: 302 Brief History: The patient is a 76-year-old white female with a significant past medical history of degenerative joint disease, atrial fibrillation, restless leg syndrome, chronic anticoagulation, iron deficiency anemia, generalized anxiety disorder, coronary artery disease, diabetes mellitus, depression, gastroesophageal reflux, allergic rhinitis who presented to [facility] emergency department on the day of admission secondary to complaints of shortness of breath. [facility] ER evaluation was consistent with exacerbation of CHF, atrial fibrillation with rapid ventricular response. Secondary to the above, the patient was admitted by Heri Sofia M.D. for further evaluation and treatment. For other history present illness, past medical history, family history, social history, review of systems, and admission physical examination please see the patient's history and physical examination and ER visit note in the patient's medical record. Subjective: Patient states she is doing somewhat better today. Shortness of breath improved. Pain well-controlled. Restless leg syndrome improved ambulation improving Patient requests: No specific Medications and Allergies Medications Current Medications Sig/Joe Start time Last Medication Dose Route Stop Time Status Admin Atorvastatin Calcium 40 MG QPM 10/11 1800 AC 10/11 PO 1822 Furosemide 20 MG DIUB 10/11 1800 AC 10/12 PO 0604 Ceftriaxone Sodium/ 50 ML DAILY 10/11 1430 AC 10/11 Dextrose IV 1528 Metoprolol Tartrate 50 MG Q8H 10/11 1430 AC 10/12 PO 0604 Metoprolol Tartrate 5 MG Q3H PRN 10/11 1430 AC IV Warfarin Sodium 4 MG DAILY@1400 10/11 1400 AC 10/11 PO 1331 Venlafaxine HCl 150 MG DAILY 10/11 0900 AC 10/11 PO 0813 Acetaminophen/ See Dose Q4H PRN 10/11 0815 AC 10/12 Hydrocodone Bitart Insts (1) PO 0500 Carbidopa/Levodopa 1 TAB 5XD 10/11 0800 AC 10/12 PO 0604 Insulin Human Lispro See Dose ACHS 10/11 0730 AC 10/11 Insts (2) SC 0811 Nitroglycerin 1 GM Q6HR 10/11 0600 AC 10/12 TOP 0604 Pantoprazole Sodium 40 MG DAILY@0600 10/11 0600 AC 10/12 Sesquihydrate PO 0604 Candesartan Cilexetil 4 MG BID 10/11 0230 AC 10/11 PO 2124 Diltiazem/Dextrose 125 ML ASDIRECTED 10/11 0100 AC 10/11 IV 0951 Acetaminophen 650 MG Q4H PRN 10/11 44 AC PO Al Hydrox/Mg Hydrox/ 15 ML Q1H PRN 10/11 44 AC Simethicone PO Atropine Sulfate 0.5 MG Q3MIN PRN 10/11 44 AC IV Docusate Sodium 250 MG BID PRN 10/11 44 AC PO Lidocaine HCl See Dose ONCE PRN 10/11 44 AC Insts (3) IV Magnesium Hydroxide 10 ML DAILY PRN 10/11 44 AC PO Nitroglycerin 0.4 MG Q5M PRN 10/11 44 AC SL Ondansetron HCl 4 MG Q6H PRN 10/11 44 AC IV Sodium Chloride 1,000 ML ASDIRECTED 10/11 44 AC 10/12 IV 0619 Dose Instructions: (1)Acetaminophen/Hydrocodone Bitart: 1 - 2 TABLETS (2)Insulin Human Lispro: MEDIUM DOSE SLIDING SCALE (3)Lidocaine HCl: 1.5 MG/KG Allergies Coded Allergies: Pramipexole (From Mirapex) (Severe, TIA'S 04/04/12) Penicillins (Intermediate, hives 04/04/12) Blueberries (10/11/16) Lorazepam (From ATIVAN) (10/11/16) Morphine (10/11/16) Zolpidem (10/11/16) Uncoded Allergies: DIHYDROCHLORIDE (10/11/16) Physical Exam Vital Signs / I&Os Vital Signs Date Time Temp Pulse Resp B/P Pulse O2 O2 Flow FiO2 Ox Delivery Rate 10/12 0747 98.4 71 20 113/44 94 Nasal 3.0 Cannula 10/12 0613 97.5 93 18 130/68 96 Nasal 3.0 Cannula 10/12 0507 84 18 123/53 95 Nasal 3.0 Cannula 10/12 0426 123/58 10/12 0412 81 18 95 Nasal 3.0 Cannula 10/12 0309 77 102/84 94 Nasal 3.0 Cannula 10/12 0254 97.9 10/12 0208 87 18 128/63 92 Nasal 3.0 Cannula 10/12 0109 81 18 115/51 96 Nasal 3.0 Cannula 10/12 0023 73 18 119/60 96 Nasal 3.0 Cannula 10/11 2300 75 18 106/41 93 Nasal 3.0 Cannula 10/11 2247 86 129/75 10/11 2207 98.2 80 18 111/50 97 Nasal 3.0 Cannula 10/11 2105 78 18 121/51 95 Nasal 3.0 Cannula 10/11 2004 81 18 123/47 92 Nasal 3.0 Cannula 10/11 1949 Nasal 3.0 Cannula 10/11 1937 77 10/11 1800 98.1 77 18 104/94 97 Nasal 3.0 Cannula 10/11 1700 69 16 109/46 96 Nasal 3.0 Cannula 10/11 1600 64 20 110/48 92 Nasal 3.0 Cannula 10/11 1456 98.1 79 24 108/48 95 Nasal 3.0 Cannula 10/11 1320 3.0 10/11 1300 99 18 130/66 100 Nasal 3.0 Cannula 10/11 1211 82 20 122/60 92 Nasal 3.0 Cannula 10/11 1100 82 18 124/35 93 Nasal 3.0 Cannula 10/11 1000 98.2 89 24 108/37 93 Nasal 4.0 Cannula 10/11 0900 89 22 112/71 93 Nasal 8.0 Cannula 10/11 0800 Nasal 3.0 Cannula 10/11 0800 101 20 129/51 96 Nasal 8.0 Cannula I&O 10/12 0000 10/11 1600 10/11 0800 Intake Total 1710 450 621 Output Total 450 1125 900 Balance 1260 -675 -279 General Appearance Alert, Oriented X3, Cooperative, No acute distress Lungs Normal air movement, Minimal basilar crackles Cardiovascular Normal S1 and S2, irregular rhythm, rate controlled Abdomen Normal bowel sounds, Soft, No tenderness Extremities No cyanosis, No clubbing Neurological Cranial nerves intact, No lateralizing signs Psych/Mental Status Mental status normal, Mood normal LAB Results Laboratory Tests 10/12 10/12 10/12 10/11 10/11 0420 0420 0420 2122 1329 Chemistry Plasma Sodium (136 - 145 mmol/L) 140 Plasma Potassium (3.5 - 5.1 mmol/L) 3.4 Plasma Chloride (98 - 107 mmol/L) 103 CO2 (Enzymatic) (21 - 32 mmol/L) 28 BUN (7 - 18 mg/dL) 21 Creatinine (0.6 - 1.3 mg/dL) 0.8 Est GFR ( Amer) (mL/min) >60 Est GFR (Non-Af Amer) (mL/min) >60 Glucose (70 - 110 mg/dL) 102 Hemoglobin A1c % (4.5 - 6.2 %) 6.7 Plasma Calcium (8.5 - 10.1 mg/dL) 9.3 Total Bilirubin (0.0 - 1.0 mg/dL) 0.7 AST (15 - 37 U/L) 13 ALT (12 - 78 U/L) 8 Alkaline Phosphatase (46 - 116 U/L) 84 Troponin (0.00 - 1.5 ng/mL) <0.05 <0.05 B-Natriuretic Peptide (5 - 100 pg/ml) 258 Total Protein (6.4 - 8.2 g/dL) 6.0 Albumin (3.3 - 5.0 g/dL) 3.0 Hematology WBC (4.5 - 11.5 K/uL) 9.7 RBC (4.00 - 5.20 M/uL) 3.38 Hgb (12.0 - 16.0 gm/dL) 9.8 Hct (36.0 - 46.0 %) 30.2 MCV (80 - 100 fL) 89 MCH (26 - 34 pg) 29 RDW (11.6 - 14.8 %) 14.9 Neut % (Auto) (50 - 75 %) 74 Lymph % (Auto) (25 - 40 %) 15 [place] % (Auto) (3 - 14 %) 5 Eos % (Auto) (0 - 4 %) 2 Baso % (Auto) (0 - 2 %) 1 Band Neutrophils % (0 - 8 %) 3 Metamyelocytes % (0 - 1 %) 0 Myelocytes (0 - 1 %) 0 Other Cell Type 0 Plt Count, EDTA (150 - 400 K/uL) 239 Hypochromic-Microcytic 1+ PUBS MCHC (31 - 37 g/dL) 33 10/11 1020 Coagulation INR (0.8 - 1.2) 1.7 Microbiology Date/Time Procedure - Status Source Growth 10/11 1045 MRSA Screen - RECD NOSE Assessment and Plan Problem List 1. CHF (congestive heart failure) Plan -Patient presented with findings consistent with CHF -Echocardiogram shows normal left ventricular systolic function. No significant valvular abnormalities. -Patient exhibits heart failure with normal EF -Continue present therapy -Monitor -Low-salt diet 2. Atrial fibrillation, rapid Plan -Rate well controlled -Continue present therapy -Continue anticoagulation 3. UTI (urinary tract infection) Status Acute Onset Date Unknown Plan -Urine C&S pending -Continue Rocephin -Monitor 4. Restless leg syndrome Status Chronic Onset Date Unknown Plan -Stable to improved -Continue present therapy -Monitor 5. Cerebrovascular disease Status Chronic Onset Date Unknown Plan -Stable -No neurological symptoms -Bilateral carotid artery disease -Discharge on ASA 81 mg by mouth daily and Coumadin 6. Hyperlipidemia Status Chronic Onset Date Unknown Plan -Stable -No further evaluation -Outpatient follow-up with PCP 7. Obesity Status Chronic Onset Date Unknown Plan -Encourage weight reduction program 8. Obstructive sleep apnea Status Chronic Onset Date Unknown Plan -Stable -Outpatient follow-up 9. Chronic anticoagulation Status Chronic Onset Date Unknown Plan -Mild -Potassium 3.4 -Supplementation-oral -Monitor 10. Hypokalemia Status Acute Onset Date Unknown Plan -Patient with mild hypokalemia -Potassium 3.4 -KCl 40 mEq by mouth this a.m. -Monitor Current status: Fair, improved Anticipated discharge date: Anticipated discharge in 1-2 days Anticipated discharge placement: Home Patient care time: Time spent in chart review, patient interview, physical exam, CPOE, and care documentation: 35 minutes Visit to patient today: 1 Complexity of care: Moderate-High E&M Codes Rounding: Inpt-High/[id number]
--- NOTE | 2016-10-12 11:00 | NUR ---
PT WEANED OFF O2 THIS AM. SATS 90-94% ON ROOM AIR. AMBULATED IN HALLS PUSHING IV POLE. ROOM AIR SATS WITH AMBULATION, 89-94%. PT BECAME SOB AND HAD TO SIT DOWN FOR A COUPLE OF MIN AFTER WALKING APPROX 100 FEET. BACK TO ROOM, AND PT SAID, "I HAVE TO LAY DOWN." ROOM AIR SATS FOLLOWING AMBULATION WERE 86%. PLACED BACK ON NASAL CANNULA AT 1L. PT SLEEPING QUIETLY AT THIS TIME. O2 SAT 93% ON 1L.
--- NOTE | 2016-10-12 15:31 | NUR ---
NUTRITION ASSESSMENT: PT admitted with dx/o CHF and A fib, PHH + diabetes, hyperlipidemia, depression, GERD, chronic a fib, htn, obstructive sleep apnea, peripheral neuropathy, RLS, see H&P. PO intake 50-100% of meals. Diet Rx: Cardiac/Consistent Carb Diet NKFA Wts: 98.6 kg Ht: 65" IBW: 50-65 kg BMI: 36 %IBW: 150% ABW: ~75 kg Est Kcals: ~1083-2278 kcals per day Est Pro: ~75-90 g per day Est Fluids: ~2250 mls per day Meds Incl: bowel meds, losaratan, lipitor, sinemet, lasix, med sliding scale insulin, metoprolol, protonix, KCL, venlafaxine, warfarin, see eMar for comlete list/details. Labs Incl: (10/12) glucose 102, BUN 21, Creat 0.8, Na+ 140, K+ 3.4, Ca+ 9.3, total pro 6.0, albumin 3.0, BNP 258, A1c 6.7 (est ave 146), HCT 30.2, HGB 9.8, MCV 89, MCH 29 Skin: Jose [place] 19; no pressure sores noted or reported. Accuchecks: 84-166 A: Pt appears to have a good appetite. Accuchecks appear within acceptable perameters given hx/o DM and current illness. CCD and Cardiac diet appear appropriate given hx/dx. RD to follow up and monitor nutrition indices prn/protocol. P: 1. Continue same
--- NOTE | 2016-10-12 18:55 | NUR ---
PT HAS DONE WELL TODAY. UP AND ABOUT IN ROOM, GAIT STEADY, ON O2 1L NC. CURRENTLY O2 SATS ARE 96% WHILE AT REST. PLEASANT AND COOPERATIVE. WCTM.
--- NOTE | 2016-10-12 22:07 | NUR ---
PT RESTING IN BED, ALERT AND ORIENTED X3. CHRONIC PAIN AT A 4-5/10 TO FEET BILAT. TELE SHOWS AFIB - NO SOB, NO CHEST PAIN, NO HEART PALPITATIONS. HEART RATE AT 76. O2 SATS AT 97% ON 1 LITERS NC. MOVING AROUND INDEPENDENTLY WITH MINIMAL ASSIST - STEADY ON FEET. NO SCDS - PT IS ON COUMADIN. SALINE LOCKED PER DR PHAM. CALL LIGHT WITHIN REACH. NO REQUESTS AT THIS TIME.
[2016-10-13 00:10] VITALS: BP 141/74
[2016-10-13 01:47] VITALS: BP 99/44
[2016-10-13 06:05] VITALS: BP 156/69
--- NOTE | 2016-10-13 06:21 | NUR ---
PT RESTING IN ROOM. ROOM AIR O2 SATS AT 94%. STANDING AT BEDSIDE - STABLE ON FEET. PT REMAINS IN AFIB, HEART RATE AT 96. NO REQUESTS THIS AM.
--- NOTE | 2016-10-13 07:52 | Progress Note ---
Subjective General Note Date: October 13, 2016 Admission Date: October 10, 2016 Hospital Day: 4 PCP: Bari Rea M.D. Status: Inpatient Advanced Directive: FULL CODE Room: 302 Brief History: The patient is a 76-year-old white female with a significant past medical history of degenerative joint disease, atrial fibrillation, restless leg syndrome, chronic anticoagulation, iron deficiency anemia, generalized anxiety disorder, coronary artery disease, diabetes mellitus, depression, gastroesophageal reflux, allergic rhinitis who presented to [facility] emergency department on the day of admission secondary to complaints of shortness of breath. [facility] ER evaluation was consistent with exacerbation of CHF, atrial fibrillation with rapid ventricular response. Secondary to the above, the patient was admitted by Heri Sofia M.D. for further evaluation and treatment. For other history present illness, past medical history, family history, social history, review of systems, and admission physical examination please see the patient's history and physical examination and ER visit note in the patient's medical record. Subjective: Doing well. Ready for discharge. Patient requests: None Medications and Allergies Medications Current Medications Sig/Joe Start time Last Medication Dose Route Stop Time Status Admin Magnesium Citrate 300 ML 1300 10/15 1300 AC PO 10/15 1301 Bisacodyl 10 MG 0910/15 0900 AC IL 10/15 0901 Polyethylene Glycol 17 GM 0910/14 0900 AC PO 10/14 0901 Losartan Potassium 50 MG DAILY 10/13 0900 AC PO Magnesium Hydroxide 10 ML 0900 10/13 0900 AC PO 10/13 0901 Furosemide 20 MG DIUB 10/12 2045 AC 10/13 IV 0602 Potassium Chloride 20 MEQ BID 10/12 1315 AC 10/12 PO 2108 Atorvastatin Calcium 40 MG QPM 10/11 1800 AC 10/12 PO 1843 Ceftriaxone Sodium/ 50 ML DAILY 10/11 1430 AC 10/12 Dextrose IV 1040 Metoprolol Tartrate 50 MG Q8H 10/11 1430 AC 10/13 PO 0602 Metoprolol Tartrate 5 MG Q3H PRN 10/11 1430 AC IV Warfarin Sodium 4 MG DAILY@1400 10/11 1400 AC 10/12 PO 1440 Venlafaxine HCl 150 MG DAILY 10/11 0900 AC 10/12 PO 1010 Acetaminophen/ See Dose Q4H PRN 10/11 0815 AC 10/13 Hydrocodone Bitart Insts (1) PO 0011 Carbidopa/Levodopa 1 TAB 5XD 10/11 0800 AC 10/13 PO 0602 Insulin Human Lispro See Dose ACHS 10/11 0730 AC 10/12 Insts (2) SC 1009 Nitroglycerin 1 GM Q6HR 10/11 0600 AC 10/13 TOP 0602 Pantoprazole Sodium 40 MG DAILY@0600 10/11 0600 AC 10/13 Sesquihydrate PO 0602 Diltiazem/Dextrose 125 ML ASDIRECTED 10/11 0100 AC 10/11 IV 0951 Acetaminophen 650 MG Q4H PRN 10/11 0045 AC PO Al Hydrox/Mg Hydrox/ 15 ML Q1H PRN 10/11 004 AC Simethicone PO Atropine Sulfate 0.5 MG Q3MIN PRN 10/11 004 AC IV Docusate Sodium 250 MG BID PRN 10/11 004 AC PO Lidocaine HCl See Dose ONCE PRN 10/11 004 AC Insts (3) IV Magnesium Hydroxide 10 ML DAILY PRN 10/11 0045 AC PO Nitroglycerin 0.4 MG Q5M PRN 10/11 44 AC SL Ondansetron HCl 4 MG Q6H PRN 10/11 004 AC IV Dose Instructions: (1)Acetaminophen/Hydrocodone Bitart: 1 - 2 TABLETS (2)Insulin Human Lispro: MEDIUM DOSE SLIDING SCALE (3)Lidocaine HCl: 1.5 MG/KG Allergies Coded Allergies: Pramipexole (From Mirapex) (Severe, TIA'S 04/04/12) Penicillins (Intermediate, hives 04/04/12) Blueberries (10/11/16) Lorazepam (From ATIVAN) (10/11/16) Morphine (10/11/16) Zolpidem (10/11/16) Uncoded Allergies: DIHYDROCHLORIDE (10/11/16) Physical Exam Vital Signs / I&Os Vital Signs Date Time Temp Pulse Resp B/P Pulse O2 O2 Flow FiO2 Ox Delivery Rate 10/13 0640 98.2 10/13 0605 84 16 156/69 94 Room Air 10/13 0147 98.2 72 22 99/44 95 Room Air 10/13 0010 141/74 10/120 97.9 87 22 117/60 95 Nasal 1.0 Cannula 10/12 2050 Nasal 1.0 Cannula 10/12 1940 1.0 10/12 1838 97.5 83 20 141/74 94 Nasal 1.0 Cannula 10/12 1532 84 126/61 93 Nasal 1.0 Cannula 10/12 1451 2.0 10/12 1145 74 20 122/56 94 Nasal 1.0 Cannula 10/12 1111 93 Nasal 1.0 Cannula 10/12 1047 98.1 74 20 102/40 90 Nasal 1.5 Cannula 10/12 1045 86 Room Air 10/12 0947 83 21 105/52 91 Nasal 1.5 Cannula 10/12 0847 97.5 80 21 90/56 97 Nasal 1.5 Cannula 10/12 0830 Nasal 1.5 Cannula 10/12 0813 2.0 I&O 10/13 0000 10/12 1600 10/12 0800 Intake Total 600 760 978 Output Total 2175 350 Balance -1575 760 628 General Appearance Alert, Cooperative, No acute distress Lungs Clear to auscultation Cardiovascular Normal S1 and S2, Rate controlled, irregular rhythm Abdomen Normal bowel sounds, Soft, No tenderness Extremities No cyanosis, No clubbing Neurological Cranial nerves intact, No lateralizing signs Psych/Mental Status Mental status normal LAB Results Laboratory Tests 10/13 10/13 10/12 0410 0410 0900 Chemistry Plasma Sodium (136 - 145 mmol/L) 143 Plasma Potassium (3.5 - 5.1 mmol/L) 3.6 Plasma Chloride (98 - 107 mmol/L) 104 CO2 (Enzymatic) (21 - 32 mmol/L) 29 BUN (7 - 18 mg/dL) 22 Creatinine (0.6 - 1.3 mg/dL) 0.7 Est GFR ( Amer) (mL/min) >60 Est GFR (Non-Af Amer) (mL/min) >60 Glucose (70 - 110 mg/dL) 104 Plasma Calcium (8.5 - 10.1 mg/dL) 9.6 B-Natriuretic Peptide (5 - 100 pg/ml) 526 Coagulation INR (0.8 - 1.2) 1.9 1.7 Hematology WBC (4.5 - 11.5 K/uL) 8.3 RBC (4.00 - 5.20 M/uL) 3.48 Hgb (12.0 - 16.0 gm/dL) 10.0 Hct (36.0 - 46.0 %) 31.0 MCV (80 - 100 fL) 89 MCH (26 - 34 pg) 29 RDW (11.6 - 14.8 %) 14.9 Neut % (Auto) (50 - 75 %) 68 Lymph % (Auto) (25 - 40 %) 25 [place] % (Auto) (3 - 14 %) 1 Eos % (Auto) (0 - 4 %) 2 Baso % (Auto) (0 - 2 %) 0 Band Neutrophils % (0 - 8 %) 4 Metamyelocytes % (0 - 1 %) 0 Myelocytes (0 - 1 %) 0 Other Cell Type 0 Plt Count, EDTA (150 - 400 K/uL) 266 Hypochromic-Microcytic 1+ PUBS MCHC (31 - 37 g/dL) 32 Assessment and Plan Problem List 1. CHF (congestive heart failure) Status Chronic Onset Date Unknown Plan -stable -ready for discharge -see discharge summary 2. Atrial fibrillation Status Chronic Onset Date Unknown Plan -rate controlled -continue present therapy -continue anticoagulation -discharged today 3. UTI (urinary tract infection) Status Acute Onset Date Unknown Plan -resolved 4. Restless leg syndrome Status Chronic Onset Date Unknown Plan -well-controlled -continue outpatient medical regimen 5. Cerebrovascular disease Status Chronic Onset Date Unknown Plan -stable -continue present medical therapy - follow-up with PCP as scheduled 6. Hyperlipidemia Status Chronic Onset Date Unknown Plan -stable -outpatient follow-up with PCP 7. Obesity Status Chronic Onset Date Unknown Plan -encourage weight reduction program -outpatient follow-up with PCP 8. Chronic anticoagulation Status Chronic Onset Date Unknown Plan -continue anticoagulation -follow-up with PCP for repeat INR and adjustments in therapy as scheduled 9. Hypokalemia Status Acute Onset Date Unknown Plan -improved -outpatient follow-up with PCP Current status: Fair, improved Anticipated discharge date: Today Anticipated discharge placement: Home Patient care time: Time spent in chart review, patient interview, physical exam, CPOE, and care documentation: greater than 30 minutes Visit to patient today: 1 Complexity of care: Moderate E&M Codes Discharge: Inpt >30 min spent/[id number]
[2016-10-13 10:20] VITALS: BP 109/59
--- NOTE | 2016-10-13 12:05 | NUR ---
Patient's HR between 108-116 bpm while ambulating.
[2016-10-13] MEDS ORDERED: TOPROL XL50 MG PO (13:59)
[2016-10-13] MEDS ORDERED: FERROUS SULFAT325 M1 PO (14:01)
[2016-10-13] MEDS ORDERED: ISOSORBIDE MONO30 MG PO (14:03)
--- NOTE | 2016-10-13 14:07 | Provider's Discharge Care Plan ---
Problem, Goal, Plan Problem List 1. CHF (congestive heart failure) Goals: Improve disease control, Prevent disease progress Instructions: Follow up as directed, Take meds as directed, Avoid processed foods, low-salt diet. Weight yourself daily. 2. Atrial fibrillation Goals: Improve disease control, Prevent disease progress Instructions: Follow up as directed, Take meds as directed, Avoid processed foods 3. Chronic anticoagulation Goals: Improve disease control, Prevent disease progress Instructions: Follow up as directed, Take meds as directed, Have your protime /INR rechecked on Monday, October 17, 2016. 4. Iron deficiency anemia Goals: Improve disease control, Prevent disease progress Instructions: Follow up as directed, Take meds as directed, Have your blood count rechecked in 2 weeks. Recheck your iron levels in 1-2 months. Follow-up care physician to discuss possible colonoscopy if this has not been performed recently. Your last recorded colonoscopy was 2007 by our records.
--- NOTE | 2016-10-13 15:50 | NUR ---
DISCHARGE INSTRUCTIONS REVIEWED WITH PT, QUESTIONS ANSWERED. RXs FOR NEW MEDS GIVEN TO PT. PT DISACHARGED HOME WITH VIA [employer]IVAE VEHICLE.
--- NOTE | 2016-10-17 08:40 | Discharge Summary ---
Discharge Summary Report Admit Date 10/10/16 Discharge Date 10/13/16 Admission Diagnosis 1. Atrial fibrillation 2. CHF Discharge Diagnosis 1. Atrial fibrillation 2. CHF Brief History he patient is a 76-year-old white female with a significant past medical history of degenerative joint disease, atrial fibrillation, restless leg syndrome, chronic anticoagulation, iron deficiency anemia, generalized anxiety disorder, coronary artery disease, diabetes mellitus, depression, gastroesophageal reflux, allergic rhinitis who presented to [facility] emergency department on the day of admission secondary to complaints of shortness of breath. [facility] ER evaluation was consistent with exacerbation of CHF, atrial fibrillation with rapid ventricular response. Secondary to the above, the patient was admitted by Heri Sofia M.D. for further evaluation and treatment. For other history present illness, past medical history, family history, social history, review of systems, and admission physical examination please see the patient's history and physical examination and ER visit note in the patient's medical record. Hospital Course The following problems and their management were noted during the patient's hospitalization: 1. Atrial fibrillation The patientPresented with atrial fibrillation with rapid ventricular response. He was treated with IV/by mouth medications with good control of heart rate. Continue anticoagulation. Follow-up with PCP for reevaluation and INR as scheduled 2. CHF The patient was noted to have findings of CHF on presentation. Echocardiogram showed preserved left ventricular function with CHF. His symptoms were adequately controlled at discharge. General Appearance Alert, Oriented X3, Cooperative, No acute distress Lab/Imaging Echocardiogram IMPRESSION: The left ventricle is normal in size. Left ventricular systolic function is normal without focal wall motion abnormalities. The ejection fraction is estimated to be 70-75%. Diastolic function could not be accurately assessed due to atrial fibrillation. The right ventricle grossly appears normal in size with probable normal systolic function. Pulmonary artery pressures cannot be estimated because of the lack of a measurable TR jet velocity. The left atrium is moderately dilated. The right atrium is mildly dilated. There is no significant valvular heart disease. The aortic root is normal size. Dictated by: KANE RODRIGUEZ MD D: REED;10/11/16 [id number] Discharge Instructions/Meds For other recommendations regarding discharge diet, activity, follow-up, and discharge medications please see the patient's discharge instructions. Discharge condition: Fair, improved-stable Greater than 30 minutes was spent in the patient's discharge preparation The patient was interviewed and examined on the day of discharge.
--- NOTE | 2016-10-17 08:40 | Discharge Summary ---
Discharge Summary Report Admit Date 10/10/16 Discharge Date 10/13/16 Admission Diagnosis 1. Atrial fibrillation 2. CHF Discharge Diagnosis 1. Atrial fibrillation 2. CHF Brief History he patient is a 76-year-old white female with a significant past medical history of degenerative joint disease, atrial fibrillation, restless leg syndrome, chronic anticoagulation, iron deficiency anemia, generalized anxiety disorder, coronary artery disease, diabetes mellitus, depression, gastroesophageal reflux, allergic rhinitis who presented to [facility] emergency department on the day of admission secondary to complaints of shortness of breath. [facility] ER evaluation was consistent with exacerbation of CHF, atrial fibrillation with rapid ventricular response. Secondary to the above, the patient was admitted by Heri Sofia M.D. for further evaluation and treatment. For other history present illness, past medical history, family history, social history, review of systems, and admission physical examination please see the patient's history and physical examination and ER visit note in the patient's medical record. Hospital Course The following problems and their management were noted during the patient's hospitalization: 1. Atrial fibrillation The patientPresented with atrial fibrillation with rapid ventricular response. He was treated with IV/by mouth medications with good control of heart rate. Continue anticoagulation. Follow-up with PCP for reevaluation and INR as scheduled 2. CHF The patient was noted to have findings of CHF on presentation. Echocardiogram showed preserved left ventricular function with CHF. His symptoms were adequately controlled at discharge. General Appearance Alert, Oriented X3, Cooperative, No acute distress Lab/Imaging Echocardiogram IMPRESSION: The left ventricle is normal in size. Left ventricular systolic function is normal without focal wall motion abnormalities. The ejection fraction is estimated to be 70-75%. Diastolic function could not be accurately assessed due to atrial fibrillation. The right ventricle grossly appears normal in size with probable normal systolic function. Pulmonary artery pressures cannot be estimated because of the lack of a measurable TR jet velocity. The left atrium is moderately dilated. The right atrium is mildly dilated. There is no significant valvular heart disease. The aortic root is normal size. Dictated by: KANE RODRIGUEZ MD D: REED;10/11/16 3514 Discharge Instructions/Meds For other recommendations regarding discharge diet, activity, follow-up, and discharge medications please see the patient's discharge instructions. Discharge condition: Fair, improved-stable Greater than 30 minutes was spent in the patient's discharge preparation The patient was interviewed and examined on the day of discharge.
== END 2016-10-13 16:00 | disposition home or self-care (01) | DRG 308 ==
LOC: ED SRH 21:11 → CC SRH 23:57 → TRANS SRH 23:57 → CC SRH 10-11 01:22 → TRANS SRH 10-11 01:22 → CC SRH 10-12 11:30
PROVIDERS: ADMIT Internal Medicine
DX: I48.91 Unspecified atrial fibrillation (principal); I11.0 Hypertensive heart disease with heart failure; I50.33 Acute on chronic diastolic (congestive) heart failure; E87.6 Hypokalemia; E11.51 Type 2 diabetes mellitus with diabetic peripheral angiopathy without gangrene; G25.81 Restless legs syndrome; I25.10 Atherosclerotic heart disease of native coronary artery without angina pectoris; Z95.5 Presence of coronary angioplasty implant and graft; G47.33 Obstructive sleep apnea (adult) (pediatric); Z79.4 Long term (current) use of insulin; Z79.01 Long term (current) use of anticoagulants